=== PATIENT | male | born 1930 | race Caucasian/White ===

== ENCOUNTER 2016-09-26 10:38 | Inpatient (IN) | payer OTHER, MEDICARE ==
[~2016-09-26] VITALS: Ht 180.3 cm; Wt 84.8 kg
--- NOTE | ~2016-09-26 | H ---
[facility] [place] [address] HISTORY AND PHYSICAL Name: DAPHNE DONOVAN Room #: 515-P ADM IN M.R.#: [id number] Admission: 09/26/16 Attend Phys: Denver Kimball MD Discharge: Date of : 31 Report #: [id number] THIS REPORT FOR: //name// For History and Physical, please see office documentation/handwritten note in the patient's medical record. <ELECTRONICALLY SIGNED> By: Denver Kimball MD 10/14/16 0952 0750 Denver Kimball MD /
--- NOTE | ~2016-09-26 | HC ---
[facility] [place] [address] [address] CONSULTATION Name: DAPHNE DONOVAN Room #: 515-P ADM IN M.R.#: [id number] Admission: 09/26/16 Attend Phys: Denver Kimball MD Discharge: Date of : 31 Report #: [id number] THIS REPORT FOR: //name// CC: Denver Bonner DATE OF SERVICE: 10/04/2016 ATTENDING PHYSICIAN: Denver Kimball MD FOOD SAFETY DIRECTOR: José Miguel Krishna PhD CLINICAL PRESENTATION: The patient was admitted to the rehabilitation unit at [facility] for a comprehensive inpatient rehabilitation program to improve functional mobility and activities of daily living and self-care secondary to impairment from his acute left posterior frontal CVA. He was admitted with right hemiparesis and a functional decline in comparison to premorbid ability. His medical history includes normal pressure hydrocephalus, hypertension, elevated lipids, diabetes mellitus, coronary artery disease with prior coronary bypass grafting, atrial fibrillation and benign prostatic hypertrophy. The patient also has had some dysarthria and difficulty with functional mobility and ADLs. MEDICATIONS: Reported to include clopidogrel bisulfate 75 mg daily, insulin 20 units in a.m. b.i.d., multivitamin with iron supplement, terazosin, docosahexaenoic acid, aspirin, sotalol 80 mg daily, furosemide 20 mg daily, lisinopril 40 mg daily, insulin aspart sliding scale, GlucaGen 1 mg as directed, dextrose 50% with water 25 grams as directed, glucose liquid as directed, glucose as directed, tamsulosin hydrochloride, finasteride, magnesium hydroxide, sennosides, docusate NA, acetaminophen. A complete description of his medical condition, history and medications can be found in his medical records. Neuropsychological consultation was requested to provide assistance in the assessment of cognitive and emotional status and to provide recommendations and services. Prior to this most recent admission, the patient was living independently in his own home. The patient has 3 children. He is a collage graduate. 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 His family is very supportive. He does not report a prior history of treatment for mood disorder, or alcohol/drug abuse. TECHNIQUES UTILIZED: Clinical interview, review of medical records, staff consultation and behavioral observation, mini mental status exam 2 standard version, and verbal fluency assessment (letter and category) and brief abstract reasoning evaluation. [address] [address] CONSULTATION Name: DAPHNE DONOVAN Room #: 515-P [facility] IN ..#: [id number] Admission: 09/26/16 Attend Phys: Denver Kimball MD Discharge: Date of : 31 Report #: [id number] EXAMINATION FINDINGS: The patient was alert and cooperative with the assessment. There is no evidence of aphasia. He does not report auditory or visual hallucinations. He does not describe suicidal ideation. He does report subjective anxiety and depression. He was somewhat irritable and frustrated with the degree of care that he has been receiving. He does not report difficulty with memory, word finding, sleep or appetite. His performance was in the impaired range on the MMSE 2 brief version with a raw score 12 of 16 and a T score of 28. He was 3/3 for initial registration, 4/5 for orientation to time, 5/[address], and 0/3 for immediate recall of 3 items after a brief time delay and distraction. His performance improved on the MMSE 2 standard version to a raw score of 25 of 30, which is a T score of 40. He was 5/5 for serial sevens, 2/2 for naming, 1/1 for repetition, 3/3 for auditory comprehension and 1/1 for being able to read and follow a single command. He was able to dictate a sentence. He was not asked to copy a simple geometric design because of weakness in his dominant hand. Letter fluency was in the moderate range of impairment with a raw score of 15, T score of 29 and percentile rank of 2. Category fluency was in the mild to moderate range with a raw score of 10, T score at 30 and percentile rank of 2. The patient was 8/8 on a brief abstract reasoning test. DIAGNOSTIC IMPRESSION: Neurocognitive disorder, unspecified, without behavior disorder, extent to be determined, likely in the moderate range. 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 RECOMMENDATIONS: The patient and his family will benefit from educational information regard to the extent of his cognitive disorder and the use of compensatory strategies. Indicated is the use of relaxation techniques and opportunities to chart his progress in achieving goals and independence since his hospitalization to improve a sense of control and achievement. The patient will need increased assistance with instrumental ADLs upon his return home. An outpatient neuropsychological evaluation will be of benefit to assist in clarification of the extent of cognitive deficits. Thank you very much for allowing me to provide the consultation on this patient. <ELECTRONICALLY SIGNED> By: José Miguel Krishna, PhD 10/06/16 1822 1523 [id number] José Miguel Krishna, PhD /nt
--- NOTE | ~2016-09-26 | PLAN ---
[facility] [place] [address] REHAB UNIT PLAN OF CARE Name: DAPHNE DONOVAN Room #: 515-P [facility] IN M.R.#: [id number] Admission: 09/26/16 Attend Phys: Denver Kimball MD Discharge: Date of : 31 Report #: [id number] THIS REPORT FOR: //name// CC: Denver Bonner DATE OF SERVICE: 09/29/2016 DATE OF SERVICE: 09/29/2016 The patient is seen back today in followup. He is in no distress. Temperature 37.1, pulse 74, respirations 14, blood pressure 119/51. He is pleasant, alert. No focal calf swelling. No neurologic change noted with examination. His transfers are mod assist. He is ambulating 20 feet mod assist in the parallel bars. In occupational therapy, upper body dressing is max assist, lower body is max assist. In speech therapy, he has mild comprehensive deficits. He is on a regular diet with all liquids. ASSESSMENT: 1. Left posterior frontal cerebrovascular accident. 2. Right-sided hemiparesis. 3. Upper extremity greater than lower extremity. 4. Right-sided clumsiness. 5. Dysarthria. 6. Functional mobility and ADL and communication deficits. 7. History of diabetes mellitus. 8. Hypertension. 9. Elevated lipids. 10. History of normal pressure hydrocephalus. 11. Coronary artery disease with prior coronary artery bypass grafting. 12. Atrial fibrillation. 13. Benign prostatic hypertrophy. 14. Past tobacco usage. PLAN: The overall plan of care is based on the preadmission screen, post-admission physician evaluation and information garnered from therapy assessments. 1. Estimated length of stay is probably around 3 weeks, as he is at a lower level, functionally. 2. Medical prognosis is reasonably good. 3. Anticipated interventions includes the interdisciplinary acute inpatient rehabilitation program with PT and OT and speech working with him, rehab nursing assisting regarding medication management, skin care prophylaxis, bowel and bladder issues and nursing education. Case management is involved as well as the network relations consultant physicians. 4. Anticipated functional outcomes would be for the patient to become modified independent with transfers, mobility and ADLs and communication. Hopefully, he can become modified independent at the walker level. 5. Discharge destination is back to [place] [address] REHAB UNIT PLAN OF CARE Name: DAPHNE DONOVAN Room #: 515-P [facility]#: [id number] Admission: 09/26/16 Attend Phys: Denver Kimball MD Discharge: Date of : 31 Report #: [id number] with his . 6. Expected therapy by discipline includes PT, OT and speech 1 hour per day each 5 days a week throughout the duration of the acute inpatient rehabilitation stay. <ELECTRONICALLY SIGNED> By: Denver Kimball MD 10/14/16 0951 0916 Sadia Kimball MD /judy
[~2016-09-26 10:38] MED LIST: ASPIRIN EC325 M1 PO; ASPIRIN325 PO; ASPIRIN81 M2 PO; CIPRO500 MG PO; CIPROFLOXACIN500 M1 PO; COLACE100 MG PO; DIAZEPAM 5 MG5 M1 PO; FISH OIL 1,001000 M2 PO; FLAGYL500 MG PO; FLOMAX0.4 MG PO; HYTRIN 5 M5 MG/1 CAP PO; LANTUS100 UNIT/M SUBQ; LASIX 20 MG TAB20 MG PO; LISINOPRIL10 MG PO; MIRALAX255 GM PO; NORCO 5-325 TA1 EACH PO; NOVOLIN 70100 UNIT/5 SQ; PRAVACHOL40 M1 PO; PROSCAR 5MG TABL5 MG PO; SORINE 80 MG TA80 MG PO; UNICOMPLEX M TA1 TA1 PO; VERAPAMIL E.R240 M1 PO; VITAMIN D-32000 UNI1 PO; ZOCOR5 MG PO
[2016-09-26 15:20] VITALS: BP 140/68
[2016-09-27 05:09] LABS: HEMATOCRIT 35.1 % (42.0-52.0); HEMOGLOBIN 11.8 gm/dL (14.0-18.0); MCH 31.4 pg (26.0-34.0); MCHC 33.6 % (28.0-37.0); MCV 93.5 fL (80.0-100.0); RBC 3.75 mil/uL (4.50-6.00); RDW 13.6 % (10.5-14.5); WBC 5.4 thou/uL (4.0-11.0)
[2016-09-27 05:24] LABS: PROTIME 10.8 Seconds (9.3-11.4)
[2016-09-27 05:28] VITALS: BP 168/70
[2016-09-27 05:43] LABS: ALBUMIN 2.8 g/dL (3.4-5.0); CALCIUM 8.8 mg/dL (8.5-10.1); CREATININE 1.5 mg/dL (0.6-1.3); POTASSIUM 3.6 mmol/L (3.5-5.1); TOTAL BILIRUBIN 0.3 mg/dL (<0.1-1.0); TOTAL PROTEIN 6.1 g/dL (6.4-8.2)
[2016-09-28 04:16] LABS: INR 1.1
[2016-09-28 05:41] VITALS: BP 142/60
[2016-09-28 16:23] VITALS: BP 105/53
[2016-09-28 19:20] VITALS: BP 145/64
[2016-09-28 19:23] VITALS: BP 145/64
[2016-09-28 22:00] VITALS: BP 160/79
[2016-09-28 22:19] VITALS: BP 145/64
[2016-09-29 04:33] VITALS: BP 153/61
[2016-09-29 06:48] LABS: INR 1.1; PROTIME 11.2 Seconds (9.3-11.4)
[2016-09-29 08:59] VITALS: BP 119/51
[2016-09-29 16:00] VITALS: BP 141/52
[2016-09-30 04:08] VITALS: BP 142/73
[2016-09-30 05:46] LABS: PROTIME 10.8 Seconds (9.3-11.4)
[2016-09-30 16:00] VITALS: BP 126/58
[2016-10-01 03:35] LABS: PROTIME 10.8 Seconds (9.3-11.4)
[2016-10-01 05:58] VITALS: BP 156/61
[2016-10-01 16:00] VITALS: BP 132/66
[2016-10-02 04:03] LABS: PROTIME 10.6 Seconds (9.3-11.4)
[2016-10-02 05:14] VITALS: BP 155/68
[2016-10-02 14:50] VITALS: BP 114/56
[2016-10-03 03:26] VITALS: BP 122/53
[2016-10-03 15:27] VITALS: BP 132/65
[2016-10-04 05:09] VITALS: BP 142/67
[2016-10-04 16:35] VITALS: BP 136/55
[2016-10-05 05:25] VITALS: BP 158/56
[2016-10-05 08:13] VITALS: BP 159/87
[2016-10-05 15:45] VITALS: BP 146/66
[2016-10-06 04:15] VITALS: BP 143/58
[2016-10-06 08:00] VITALS: BP 123/91
[2016-10-06 16:00] VITALS: BP 117/51
[2016-10-07 06:04] VITALS: BP 113/60
[2016-10-07 16:00] VITALS: BP 159/77
[2016-10-08 03:35] VITALS: BP 143/59
[2016-10-08 16:00] VITALS: BP 153/73
[2016-10-09 04:58] VITALS: BP 172/72
[2016-10-09 16:00] VITALS: BP 110/55
[2016-10-10 04:11] VITALS: BP 179/83
[2016-10-10 08:13] VITALS: BP 138/66
[2016-10-10 15:34] VITALS: BP 105/72
[2016-10-11 06:58] VITALS: BP 177/88
[2016-10-11 16:22] VITALS: BP 134/50
[2016-10-12 04:04] VITALS: BP 160/65
[2016-10-12 09:00] VITALS: BP 125/62
[2016-10-12 16:00] VITALS: BP 125/62
[2016-10-13 03:34] VITALS: BP 161/78
[2016-10-13 08:00] VITALS: BP 117/49
[2016-10-14 03:57] VITALS: BP 173/74
[2016-10-14 08:00] VITALS: BP 104/57
[2016-10-14 13:39] VITALS: BP 114/65
[2016-10-15 02:56] VITALS: BP 115/56
[2016-10-15 04:56] VITALS: BP 153/79
[2016-10-15 10:34] VITALS: BP 114/65
[2016-10-15 10:51] VITALS: BP 114/65
[2016-10-15 17:29] VITALS: BP 114/65
[2016-11-05] MEDS ORDERED: TRAMADOL 50 MG50 MG PO (20:51)
[2016-11-05] MEDS ORDERED: LIORESAL 10 MG10 MG PO (20:53)
[2016-11-05] MEDS ORDERED: COLACE100 MG PO (20:55)
[2016-11-05] MEDS ORDERED: MELATONIN3 MG PO (20:55)
[2016-11-05] MEDS ORDERED: TRAZODONE HCL50 MG PO (20:57)
[2016-11-19] MEDS ORDERED: CARVEDILOL3.125 MG PO (13:10)
[2016-11-19] MEDS ORDERED: TORSEMIDE5 MG PO (13:11)
[2016-11-19] MEDS ORDERED: PACERONE 200 M200 M1 PO (13:11)
[2016-11-19] MEDS ORDERED: FLOMAX0.4 MG PO (13:12)
[2016-11-23] MEDS ORDERED: CEFDINIR300 MG PO (17:53)
== END 2016-10-15 14:59 | disposition home health service (06) | DRG 56 ==
PROVIDERS: Physical Medicine & Rehabilitation
DX: G81.91 Hemiplegia, unspecified affecting right dominant side (principal); I63.9 Cerebral infarction, unspecified; E43 Unspecified severe protein-calorie malnutrition; R47.1 Dysarthria and anarthria; E11.9 Type 2 diabetes mellitus without complications; I10 Essential (primary) hypertension; I25.10 Atherosclerotic heart disease of native coronary artery without angina pectoris; I48.91 Unspecified atrial fibrillation; N40.0 Benign prostatic hyperplasia without lower urinary tract symptoms; G31.84 Mild cognitive impairment of uncertain or unknown etiology; F43.23 Adjustment disorder with mixed anxiety and depressed mood; Z95.1 Presence of aortocoronary bypass graft; Z79.4 Long term (current) use of insulin; Z87.891 Personal history of nicotine dependence
CPT/HCPCS: 10112

== ENCOUNTER 2016-10-15 21:44 | Inpatient (IN) | payer OTHER, MEDICARE ==
[~2016-10-15] VITALS: Ht 152.4 cm; Wt 84.8 kg
--- NOTE | ~2016-10-15 | H ---
[facility] [place] [address] HISTORY AND PHYSICAL Name: DAPHNE DONOVAN Room #: 406-P [facility] IN ..#: [id number] Admission: 10/16/16 Attend Phys: José Miguel Bonner MD Discharge: 10/19/16 Date of : 31 Report #: [id number] THIS REPORT FOR: //name// CC: José Miguel Bonner DATE OF SERVICE: 10/16/2016 CHIEF COMPLAINT: Back pain. HISTORY OF PRESENT ILLNESS: The patient is an 86-year-old male who just left the rehab unit yesterday after his acute CVA. He went home, and when he was transferring to the bathroom, lost his balance and fell, landed into a chair. He is having pain from the fall. PAST MEDICAL HISTORY: Significant for: 1. Recent CVA just a couple of weeks ago. 2. Hypertension. 3. Hyperlipidemia. 4. Diabetes mellitus. 5. Normal pressure hydrocephalus with a shunt. 6. Prior prostate cancer. 7. Transurethral prostate resection. MEDICATIONS: Include Sotalol 80 mg a day, lisinopril 40 mg a day, Lasix 20 mg a day, Pravachol 10 mg a day, aspirin 325 mg a day, fish oil daily, Hytrin 10 mg a day, multivitamin daily, Proscar 5 mg at bedtime, Flomax 0.4 mg b.i.d. and Lantus 15 units b.i.d. ALLERGIES: No known drug allergies. SOCIAL HISTORY: He did smoke cigarettes in the past. Alcohol use is occasional, no recreational drugs. He is and lives with his . REVIEW OF SYSTEMS: CONSTITUTIONAL: No fever or chills. HEENT: No headaches or visual changes. CHEST: No chest pain, tightness in chest, shortness of breath, cough or sputum production. GASTROINTESTINAL: No nausea, vomiting, diarrhea or constipation. GENITOURINARY: No burning or frequency. BACK AND EXTREMITIES: He has the low back pain. NEUROLOGIC: He has the weakness from the stroke, which is actually improving. PHYSICAL EXAMINATION: VITAL SIGNS: Blood pressure 138/62, pulse is 67 and respiratory rate is 12. He is afebrile and O2 sats is 98%. [address] [address] HISTORY AND PHYSICAL Name: DAPHNE DONOVAN [place] Room #: 406-P [facility]#: [id number] Admission: 10/16/16 Attend Phys: José Miguel Bonner MD Discharge: 10/19/16 Date of : 31 Report #: [id number] GENERAL: The patient is alert, in no acute distress. HEENT: His mucous membranes are moist. NECK: Supple. No adenopathy, thyromegaly or bruits. LUNGS: Chest shows some decreased breath sounds in the bases. CARDIOVASCULAR: Regular, without murmur. BACK: Tender to palpation in the lumbar area. No step off. No bruising. EXTREMITIES: Normal pulses. DIAGNOSTIC DATA: His x-ray of his lumbar spine shows some degenerative changes, no fractures. X-ray of the chest showed some mild interstitial edema. No acute infiltrate. CT of the thoracic spine showed no fractures. ASSESSMENT AND PLAN: 1. Back pain, status post fall. We will go ahead and get an MRI of his lumbar spine tomorrow if it is not improved. For now, pain meds, start physical therapy. He will need to go to a skilled facility since he is not able to be managed at home. We will arrange for transfer for that in the next day or so. 2. Recent cerebrovascular accident. Start physical therapy and occupational therapy. 3. Hypertension. Resume medications. 4. Benign prostate hypertrophy. Resume medications. 5. Diabetes. Resume medications. <ELECTRONICALLY SIGNED> By: José Miguel Bonner MD 10/20/16 1632 1639 1807 José Miguel Bonner MD /nt
[2016-10-15 21:47] VITALS: BP 138/62
[2016-10-16 00:45] VITALS: BP 181/72
[2016-10-16 03:50] VITALS: BP 149/71
[2016-10-16 06:42] LABS: URINE BILIRUBIN NEGATIVE (Negative); URINE BLOOD 2+ (Negative); URINE COLOR YELLOW; URINE GLUCOSE-RANDOM* 1+ (Negative); URINE KETONES NEGATIVE (Negative); URINE LEUKOCYTES-REFLEX 2+ (Negative); URINE PROTEIN (DIPSTICK) TRACE (Negative); URINE SPECIFIC GRAVITY >= 1.030 (1.003-1.035); URINE UROBILINOGEN 0.2 E.U./dl (0.2-1.0)
[2016-10-16 07:16] LABS: CASTS None Seen /LPF (None Seen); CRYSTALS None Seen /LPF (None Seen); SQUAMOUS None Seen /LPF (0-3); URINE WBC-REFLEX >25 Many /HPF (0-5)
[2016-10-16 08:55] VITALS: BP 146/67
[2016-10-16 14:36] VITALS: BP 132/65
[2016-10-16 16:00] VITALS: BP 127/59
[2016-10-16 20:23] VITALS: BP 130/70
[2016-10-17 00:13] VITALS: BP 126/58
[2016-10-17 04:15] VITALS: BP 109/70
[2016-10-17 08:00] VITALS: BP 123/49
[2016-10-17 09:18] LABS: HEMOGLOBIN 11.5 gm/dL (14.0-18.0); MCH 31.7 pg (26.0-34.0); MCHC 33.9 % (28.0-37.0); MCV 93.4 fL (80.0-100.0); RBC 3.64 mil/uL (4.50-6.00); RDW 13.2 % (10.5-14.5); WBC 13.4 thou/uL (4.0-11.0)
[2016-10-17 09:31] LABS: ALBUMIN 2.6 g/dL (3.4-5.0); CALCIUM 9.2 mg/dL (8.5-10.1); CREATININE 1.5 mg/dL (0.6-1.3); TOTAL BILIRUBIN 0.4 mg/dL (<0.1-1.0); TOTAL PROTEIN 6.2 g/dL (6.4-8.2)
[2016-10-17 16:00] VITALS: BP 95/44
[2016-10-17 19:30] VITALS: BP 139/40
[2016-10-18 03:14] VITALS: BP 129/57
[2016-10-18 08:00] VITALS: BP 146/82
[2016-10-18 15:42] LABS: BASOPHILS 0.6 % (0.0-2.0); HEMATOCRIT 35.9 % (42.0-52.0); MCH 31.2 pg (26.0-34.0); MCHC 33.4 % (28.0-37.0); MCV 93.4 fL (80.0-100.0); MONOCYTES 7.8 % (1.0-8.0); PLATELET COUNT 192 thou/uL (150-400); POLYS 78.6 % (36.0-66.0); RBC 3.85 mil/uL (4.50-6.00); RDW 13.7 % (10.5-14.5); WBC 8.9 thou/uL (4.0-11.0)
[2016-10-18 15:49] LABS: MANUAL DIFF NO
[2016-10-18 16:13] LABS: CALCIUM 9.2 mg/dL (8.5-10.1); CREATININE 1.3 mg/dL (0.6-1.3); POTASSIUM 4.3 mmol/L (3.5-5.1)
[2016-10-18 16:29] VITALS: BP 142/75
[2016-10-18 20:20] VITALS: BP 133/70
[2016-10-19 04:06] VITALS: BP 148/75
[2016-10-19 05:45] LABS: HEMATOCRIT 33.1 % (42.0-52.0); HEMOGLOBIN 10.9 gm/dL (14.0-18.0); MCH 31.4 pg (26.0-34.0); MCV 95.2 fL (80.0-100.0); RBC 3.47 mil/uL (4.50-6.00); RDW 13.4 % (10.5-14.5); WBC 7.7 thou/uL (4.0-11.0)
[2016-10-19 05:56] LABS: CALCIUM 9.1 mg/dL (8.5-10.1); CREATININE 1.2 mg/dL (0.6-1.3); POTASSIUM 3.9 mmol/L (3.5-5.1)
[2016-10-19 08:00] VITALS: BP 157/70
[2016-10-19] MEDS ORDERED: HYDROCODON-ACE1 EAC7 PO (12:28)
[2016-10-19] MEDS ORDERED: CEFDINIR300 MG PO (12:29)
[2016-11-05] MEDS ORDERED: TRAMADOL 50 MG50 MG PO (20:51)
[2016-11-05] MEDS ORDERED: LIORESAL 10 MG10 MG PO (20:53)
[2016-11-05] MEDS ORDERED: MELATONIN3 MG PO (20:55)
[2016-11-05] MEDS ORDERED: COLACE100 MG PO (20:55)
[2016-11-05] MEDS ORDERED: TRAZODONE HCL50 MG PO (20:57)
[2016-11-19] MEDS ORDERED: CARVEDILOL3.125 MG PO (13:10)
[2016-11-19] MEDS ORDERED: TORSEMIDE5 MG PO (13:11)
[2016-11-19] MEDS ORDERED: PACERONE 200 M200 M1 PO (13:11)
[2016-11-19] MEDS ORDERED: FLOMAX0.4 MG PO (13:12)
[2016-11-23] MEDS ORDERED: CEFDINIR300 MG PO (17:53)
== END 2016-10-19 14:14 | DRG 177 ==
LOC: ER 21:44 → EROBS 10-16 00:03 → 4N 10-16 00:50
PROVIDERS: Family Medicine; Hospitalist
DX: J15.6 Pneumonia due to other Gram-negative bacteria (principal); J96.01 Acute respiratory failure with hypoxia; N39.0 Urinary tract infection, site not specified; G91.2 (Idiopathic) normal pressure hydrocephalus; M54.9 Dorsalgia, unspecified; I10 Essential (primary) hypertension; E11.9 Type 2 diabetes mellitus without complications; E78.5 Hyperlipidemia, unspecified; N40.0 Benign prostatic hyperplasia without lower urinary tract symptoms; Z79.4 Long term (current) use of insulin; Z79.899 Other long term (current) drug therapy; Z79.82 Long term (current) use of aspirin; Z95.1 Presence of aortocoronary bypass graft; Z85.46 Personal history of malignant neoplasm of prostate; Z86.73 Personal history of transient ischemic attack (TIA), and cerebral infarction without residual deficits; Z87.891 Personal history of nicotine dependence; Z87.81 Personal history of (healed) traumatic fracture; Z91.81 History of falling
CPT/HCPCS: 10091

== ENCOUNTER → 2017-05-14 | Outpatient (CLI) | payer OTHER, MEDICARE ==
[~2017-05-14] MED LIST changes: +CARVEDILOL3.125 MG PO; +CEFDINIR300 MG PO; +HYDROCODON-ACE1 EAC7 PO; +LIORESAL 10 MG10 MG PO; +MELATONIN3 MG PO; +PACERONE 200 M200 M1 PO; +TORSEMIDE5 MG PO; +TRAMADOL 50 MG50 MG PO; +TRAZODONE HCL50 MG PO
== END ==
LOC: HYPER 07:09
DX: I87.2 Venous insufficiency (chronic) (peripheral) (principal); E11.622 Type 2 diabetes mellitus with other skin ulcer; L97.821 Non-pressure chronic ulcer of other part of left lower leg limited to breakdown of skin; S81.802A Unspecified open wound, left lower leg, initial encounter; G20 Parkinson's disease; G81.91 Hemiplegia, unspecified affecting right dominant side; I48.91 Unspecified atrial fibrillation; I25.10 Atherosclerotic heart disease of native coronary artery without angina pectoris; E78.00 Pure hypercholesterolemia, unspecified; E78.5 Hyperlipidemia, unspecified; E11.22 Type 2 diabetes mellitus with diabetic chronic kidney disease; I13.0 Hypertensive heart and chronic kidney disease with heart failure and stage 1 through stage 4 chronic kidney disease, or unspecified chronic kidney disease; N18.9 Chronic kidney disease, unspecified; I50.9 Heart failure, unspecified; Z95.1 Presence of aortocoronary bypass graft; Z85.46 Personal history of malignant neoplasm of prostate; Z86.73 Personal history of transient ischemic attack (TIA), and cerebral infarction without residual deficits; Z87.891 Personal history of nicotine dependence; Z72.89 Other problems related to lifestyle; X58.XXXA Exposure to other specified factors, initial encounter; Y93.89 Activity, other specified; Y92.89 Other specified places as the place of occurrence of the external cause; Y99.8 Other external cause status

== ENCOUNTER → 2017-05-21 | Outpatient (CLI) | payer OTHER, MEDICARE | LOC: HYPER 07:12 | DX: I87.2 Venous insufficiency (chronic) (peripheral) (principal); L97.821 Non-pressure chronic ulcer of other part of left lower leg limited to breakdown of skin; S81.801D Unspecified open wound, right lower leg, subsequent encounter; G20 Parkinson's disease; G81.91 Hemiplegia, unspecified affecting right dominant side; I48.91 Unspecified atrial fibrillation; I25.10 Atherosclerotic heart disease of native coronary artery without angina pectoris; E11.22 Type 2 diabetes mellitus with diabetic chronic kidney disease; I13.0 Hypertensive heart and chronic kidney disease with heart failure and stage 1 through stage 4 chronic kidney disease, or unspecified chronic kidney disease; N18.9 Chronic kidney disease, unspecified; I50.9 Heart failure, unspecified; E78.00 Pure hypercholesterolemia, unspecified; E78.5 Hyperlipidemia, unspecified; Z86.73 Personal history of transient ischemic attack (TIA), and cerebral infarction without residual deficits; Z85.46 Personal history of malignant neoplasm of prostate; Z95.1 Presence of aortocoronary bypass graft; Z87.891 Personal history of nicotine dependence; Z72.89 Other problems related to lifestyle; Z79.4 Long term (current) use of insulin; X58.XXXD Exposure to other specified factors, subsequent encounter ==

== ENCOUNTER → 2017-06-02 | Outpatient (CLI) | payer OTHER, MEDICARE | LOC: HYPER 07:06 | DX: I87.2 Venous insufficiency (chronic) (peripheral) (principal); E11.622 Type 2 diabetes mellitus with other skin ulcer; L97.821 Non-pressure chronic ulcer of other part of left lower leg limited to breakdown of skin; L97.811 Non-pressure chronic ulcer of other part of right lower leg limited to breakdown of skin; G20 Parkinson's disease; G81.91 Hemiplegia, unspecified affecting right dominant side; I48.91 Unspecified atrial fibrillation; I25.10 Atherosclerotic heart disease of native coronary artery without angina pectoris; E78.00 Pure hypercholesterolemia, unspecified; E11.22 Type 2 diabetes mellitus with diabetic chronic kidney disease; I13.0 Hypertensive heart and chronic kidney disease with heart failure and stage 1 through stage 4 chronic kidney disease, or unspecified chronic kidney disease; N18.9 Chronic kidney disease, unspecified; I50.9 Heart failure, unspecified; Z95.1 Presence of aortocoronary bypass graft; Z86.73 Personal history of transient ischemic attack (TIA), and cerebral infarction without residual deficits; Z85.46 Personal history of malignant neoplasm of prostate; Z79.4 Long term (current) use of insulin; Z87.891 Personal history of nicotine dependence; Z72.89 Other problems related to lifestyle ==

== ENCOUNTER 2017-06-10 18:23 | Emergency (ER) | payer OTHER, MEDICARE ==
[~2017-06-10] VITALS: Ht 180.3 cm; Wt 82.1 kg
[2017-06-10 19:25] LABS: URINE BILIRUBIN NEGATIVE (Negative); URINE BLOOD 3+ (Negative); URINE COLOR YELLOW; URINE GLUCOSE-RANDOM* NEGATIVE (Negative); URINE KETONES NEGATIVE (Negative); URINE NITRITE NEGATIVE (Negative); URINE PROTEIN (DIPSTICK) 1+ (Negative); URINE SPECIFIC GRAVITY 1.015 (1.003-1.035); URINE UROBILINOGEN 0.2 E.U./dl (0.2-1.0)
[2017-06-10 19:34] LABS: HYALINE CASTS 0-3 Few /LPF (None Seen)
[2017-06-10 19:35] LABS: SQUAMOUS None Seen /LPF (0-3); URINE RBC >20 Many /HPF (0-2)
[2017-06-10 19:36] LABS: AMORPHOUS PHOSPHATES Moderate /LPF (None Seen); BACTERIA 1-9 Few /HPF (None Seen); URINE WBC 6-15 Few /HPF (0-5)
[2017-06-10] MEDS ORDERED: LEVAQUIN 250 M250 MG PO (19:57)
== END 2017-06-10 20:20 | disposition home or self-care (01) ==
LOC: ER 18:23
PROVIDERS: Nurse Practitioner
DX: N39.0 Urinary tract infection, site not specified (principal); T83.098A Other mechanical complication of other urinary catheter, initial encounter; I48.91 Unspecified atrial fibrillation; I10 Essential (primary) hypertension; I71.4 Abdominal aortic aneurysm, without rupture; E11.9 Type 2 diabetes mellitus without complications; Z95.5 Presence of coronary angioplasty implant and graft; Z85.46 Personal history of malignant neoplasm of prostate; Z87.891 Personal history of nicotine dependence; Z79.4 Long term (current) use of insulin; Y84.9 Medical procedure, unspecified as the cause of abnormal reaction of the patient, or of later complication, without mention of misadventure at the time of the procedure; Y92.89 Other specified places as the place of occurrence of the external cause

== ENCOUNTER 2017-06-13 19:54 | Emergency (ER) | payer OTHER, MEDICARE ==
[~2017-06-13] VITALS: Ht 180.3 cm; Wt 81.8 kg
[~2017-06-13 19:54] MED LIST changes: +LEVAQUIN 250 M250 MG PO
[2017-06-13 22:50] LABS: URINE BILIRUBIN NEGATIVE (Negative); URINE BLOOD 3+ (Negative); URINE COLOR YELLOW; URINE GLUCOSE-RANDOM* NEGATIVE (Negative); URINE KETONES NEGATIVE (Negative); URINE NITRITE NEGATIVE (Negative); URINE PROTEIN (DIPSTICK) 1+ (Negative); URINE UROBILINOGEN 0.2 E.U./dl (0.2-1.0)
[2017-06-13 23:09] LABS: URINE RBC 3-10 Few /HPF (0-2)
[2017-06-13 23:10] LABS: AMORPHOUS URATES Moderate /LPF (None Seen); CASTS None Seen /LPF (None Seen); SQUAMOUS 0-3 Few /LPF (0-3); WBC CLUMPS Occasional (None Seen)
[2017-06-13 23:11] LABS: BACTERIA 1-9 Few /HPF (None Seen)
== END 2017-06-13 22:26 | disposition home or self-care (01) ==
LOC: ER 19:54
PROVIDERS: Emergency Medicine
DX: T83.091A Other mechanical complication of indwelling urethral catheter, initial encounter (principal); R33.9 Retention of urine, unspecified; I10 Essential (primary) hypertension; E11.9 Type 2 diabetes mellitus without complications; I48.91 Unspecified atrial fibrillation; Z90.79 Acquired absence of other genital organ(s); Z95.1 Presence of aortocoronary bypass graft; Z85.46 Personal history of malignant neoplasm of prostate; Z98.890 Other specified postprocedural states; Z87.891 Personal history of nicotine dependence; Z79.4 Long term (current) use of insulin; Y84.8 Other medical procedures as the cause of abnormal reaction of the patient, or of later complication, without mention of misadventure at the time of the procedure; Y92.89 Other specified places as the place of occurrence of the external cause

== ENCOUNTER 2017-06-22 11:25 | Emergency (ER) | payer OTHER, MEDICARE ==
[~2017-06-22] VITALS: Ht 180.3 cm; Wt 70.3 kg
[2017-06-22 12:36] LABS: URINE BILIRUBIN NEGATIVE (Negative); URINE BLOOD 2+ (Negative); URINE COLOR YELLOW; URINE GLUCOSE-RANDOM* NEGATIVE (Negative); URINE KETONES NEGATIVE (Negative); URINE NITRITE NEGATIVE (Negative); URINE PROTEIN (DIPSTICK) NEGATIVE (Negative); URINE UROBILINOGEN 0.2 E.U./dl (0.2-1.0)
[2017-06-22] MEDS ORDERED: LEVAQUIN 500 M500 M2 PO (12:48)
[2017-06-22 12:52] LABS: BACTERIA 1-9 Few /HPF (None Seen); CASTS None Seen /LPF (None Seen); CRYSTALS None Seen /LPF (None Seen); SQUAMOUS 0-3 Few /LPF (0-3); URINE RBC 0-2 Rare /HPF (0-2); URINE WBC 6-15 Few /HPF (0-5)
== END 2017-06-22 13:06 | disposition home or self-care (01) ==
LOC: ER 11:25
PROVIDERS: Nurse Practitioner Family
DX: R33.9 Retention of urine, unspecified (principal); I48.91 Unspecified atrial fibrillation; I10 Essential (primary) hypertension; E11.9 Type 2 diabetes mellitus without complications; Z79.82 Long term (current) use of aspirin; Z79.4 Long term (current) use of insulin; Z95.1 Presence of aortocoronary bypass graft; Z87.891 Personal history of nicotine dependence

== ENCOUNTER → 2017-06-23 | Outpatient (CLI) | payer OTHER, MEDICARE ==
[~2017-06-23] MED LIST changes: +LEVAQUIN 500 M500 M2 PO
== END ==
LOC: HYPER 06:55
DX: I87.2 Venous insufficiency (chronic) (peripheral) (principal); E11.622 Type 2 diabetes mellitus with other skin ulcer; L97.821 Non-pressure chronic ulcer of other part of left lower leg limited to breakdown of skin; E11.22 Type 2 diabetes mellitus with diabetic chronic kidney disease; I13.0 Hypertensive heart and chronic kidney disease with heart failure and stage 1 through stage 4 chronic kidney disease, or unspecified chronic kidney disease; N18.9 Chronic kidney disease, unspecified; I50.9 Heart failure, unspecified; G20 Parkinson's disease; G81.91 Hemiplegia, unspecified affecting right dominant side; I48.91 Unspecified atrial fibrillation; I25.10 Atherosclerotic heart disease of native coronary artery without angina pectoris; E78.00 Pure hypercholesterolemia, unspecified; Z86.73 Personal history of transient ischemic attack (TIA), and cerebral infarction without residual deficits; Z85.46 Personal history of malignant neoplasm of prostate; Z79.4 Long term (current) use of insulin; Z95.1 Presence of aortocoronary bypass graft; Z87.891 Personal history of nicotine dependence; Z72.89 Other problems related to lifestyle

== ENCOUNTER 2017-06-26 11:55 | Emergency (ER) | payer OTHER, MEDICARE ==
[~2017-06-26] VITALS: Ht 180.3 cm; Wt 81.2 kg
[2017-06-26 13:00] LABS: URINE BILIRUBIN NEGATIVE (Negative); URINE BLOOD 2+ (Negative); URINE COLOR YELLOW; URINE GLUCOSE-RANDOM* NEGATIVE (Negative); URINE KETONES NEGATIVE (Negative); URINE NITRITE NEGATIVE (Negative); URINE PROTEIN (DIPSTICK) 1+ (Negative); URINE SPECIFIC GRAVITY 1.015 (1.003-1.035); URINE UROBILINOGEN 0.2 E.U./dl (0.2-1.0)
[2017-06-26] MEDS ORDERED: BACTRIM DS TAB1 EACH PO (13:15)
[2017-06-26 13:16] LABS: BACTERIA 1-9 Few /HPF (None Seen); CASTS None Seen /LPF (None Seen); CRYSTALS None Seen /LPF (None Seen); SQUAMOUS None Seen /LPF (0-3); URINE RBC 3-10 Few /HPF (0-2)
== END 2017-06-26 13:51 | disposition home or self-care (01) ==
LOC: ER 11:55
PROVIDERS: Physician Assistant
DX: T83.098A Other mechanical complication of other urinary catheter, initial encounter (principal); N39.0 Urinary tract infection, site not specified; I10 Essential (primary) hypertension; E11.9 Type 2 diabetes mellitus without complications; I48.91 Unspecified atrial fibrillation; Z95.1 Presence of aortocoronary bypass graft; Z98.890 Other specified postprocedural states; Z87.891 Personal history of nicotine dependence; Z79.4 Long term (current) use of insulin; Y84.8 Other medical procedures as the cause of abnormal reaction of the patient, or of later complication, without mention of misadventure at the time of the procedure; Y92.89 Other specified places as the place of occurrence of the external cause

== ENCOUNTER 2017-11-05 20:51 | Emergency (ER) | payer OTHER, MEDICARE ==
[~2017-11-05] VITALS: Ht 180.3 cm; Wt 82.6 kg
[~2017-11-05 20:51] MED LIST changes: +BACTRIM DS TAB1 EACH PO
[2017-11-05] MEDS ORDERED: IRON325 PO (21:08)
[2017-11-05] MEDS ORDERED: ANUSOL-HC25 MG RECTAL (22:02)
[2017-11-06 00:09] VITALS: BP 115/69
== END 2017-11-06 00:14 | disposition home or self-care (01) ==
LOC: ER 20:51
DX: K56.41 Fecal impaction (principal); K62.89 Other specified diseases of anus and rectum; I48.91 Unspecified atrial fibrillation; E11.9 Type 2 diabetes mellitus without complications; I10 Essential (primary) hypertension; Z85.46 Personal history of malignant neoplasm of prostate; Z95.1 Presence of aortocoronary bypass graft; Z87.891 Personal history of nicotine dependence

== ENCOUNTER 2018-09-20 22:29 | Emergency (ER) | payer OTHER, MEDICARE ==
[~2018-09-20] VITALS: Ht 180.3 cm; Wt 73.9 kg
[~2018-09-20 22:29] MED LIST changes: +ANUSOL-HC25 MG RECTAL; +IRON325 PO
[2018-09-21] MEDS ORDERED: COZAAR 25 MG TA25 M1 PO (00:09)
[2018-09-21] MEDS ORDERED: HYOPHEN TABLET1 EACH PO (00:12)
[2018-09-21 00:27] LABS: URINE BILIRUBIN NEGATIVE (Negative); URINE BLOOD 3+ (Negative); URINE CLARITY CLEAR; URINE COLOR YELLOW; URINE GLUCOSE-RANDOM* NEGATIVE (Negative); URINE KETONES NEGATIVE (Negative); URINE NITRITE-REFLEX NEGATIVE (Negative); URINE PROTEIN (DIPSTICK) 2+ (Negative); URINE UROBILINOGEN 0.2 E.U./dl (0.2-1.0)
[2018-09-21 00:30] LABS: URINE LEUKOCYTES-REFLEX 2+ (Negative)
[2018-09-21] MEDS ORDERED: KEFLEX500 M1 PO (00:31)
[2018-09-21] MEDS ORDERED: CORTIZONE-1028 GM TOP (00:33)
[2018-09-21 00:34] LABS: BACTERIA-REFLEX 1-9 Few /HPF (None Seen); CASTS None Seen /LPF (None Seen); MUCUS 0-3 Light strn/LPF (None Seen); SQUAMOUS 0-3 Few /LPF (0-3); URINE RBC >20 Many /HPF (0-2); URINE WBC-REFLEX 6-15 Few /HPF (0-5)
[2018-09-21 00:35] LABS: TRIPLE PHOSPHATE CRYSTALS 4-10 Moderate /LPF (None Seen)
[2018-09-21 01:05] VITALS: BP 118/51
== END 2018-09-21 00:45 | disposition home or self-care (01) ==
LOC: ER 22:29
PROVIDERS: Physician Assistant
DX: N39.0 Urinary tract infection, site not specified (principal); N48.1 Balanitis; Z46.6 Encounter for fitting and adjustment of urinary device; I48.91 Unspecified atrial fibrillation; E11.9 Type 2 diabetes mellitus without complications; I10 Essential (primary) hypertension; Z87.891 Personal history of nicotine dependence; Z85.46 Personal history of malignant neoplasm of prostate; Z79.4 Long term (current) use of insulin

== ENCOUNTER 2018-09-21 13:20 | Emergency (ER) | payer OTHER, MEDICARE ==
[~2018-09-21 13:20] MED LIST changes: +CORTIZONE-1028 GM TOP; +COZAAR 25 MG TA25 M1 PO; +HYOPHEN TABLET1 EACH PO; +KEFLEX500 M1 PO
== END 2018-09-21 18:17 | disposition home or self-care (01) ==
LOC: ER 13:20
DX: T83.098A Other mechanical complication of other urinary catheter, initial encounter (principal); I48.91 Unspecified atrial fibrillation; I10 Essential (primary) hypertension; Z87.891 Personal history of nicotine dependence; Z79.4 Long term (current) use of insulin; Z95.1 Presence of aortocoronary bypass graft; Z85.46 Personal history of malignant neoplasm of prostate; Y84.8 Other medical procedures as the cause of abnormal reaction of the patient, or of later complication, without mention of misadventure at the time of the procedure; Y92.89 Other specified places as the place of occurrence of the external cause

== ENCOUNTER 2018-09-24 23:05 | Emergency (ER) | payer OTHER, MEDICARE ==
[~2018-09-24] VITALS: Ht 180.3 cm; Wt 75.8 kg
[2018-09-25 00:05] LABS: HEMATOCRIT 31.1 % (42.0-52.0); HEMOGLOBIN 10.4 gm/dL (14.0-18.0); MCH 31.1 pg (26.0-34.0); MCHC 33.5 g/dL (28.0-37.0); MCV 92.8 fL (80.0-100.0); RBC 3.35 mil/uL (4.50-6.00); RDW 15.4 % (10.5-14.5); WBC 7.7 thou/uL (4.0-11.0)
[2018-09-25 00:12] LABS: CALCIUM 8.9 mg/dL (8.5-10.1); POTASSIUM 4.1 mmol/L (3.5-5.1)
[2018-09-25 00:45] VITALS: BP 122/47
== END 2018-09-25 00:46 | disposition home or self-care (01) ==
LOC: ER 23:05
PROVIDERS: Emergency Medicine
DX: R32 Unspecified urinary incontinence (principal); I48.91 Unspecified atrial fibrillation; E11.9 Type 2 diabetes mellitus without complications; I10 Essential (primary) hypertension; Z87.891 Personal history of nicotine dependence; Z85.46 Personal history of malignant neoplasm of prostate; Z79.4 Long term (current) use of insulin

== ENCOUNTER 2018-09-26 18:19 | Emergency (ER) | payer OTHER, MEDICARE ==
[~2018-09-26] VITALS: Ht 180.3 cm; Wt 75.8 kg
[2018-09-26 20:07] VITALS: BP 121/46
== END 2018-09-26 20:08 | disposition home or self-care (01) ==
LOC: ER 18:19
DX: R32 Unspecified urinary incontinence (principal); I48.91 Unspecified atrial fibrillation; E11.9 Type 2 diabetes mellitus without complications; I10 Essential (primary) hypertension; Z79.4 Long term (current) use of insulin; Z87.891 Personal history of nicotine dependence; Z85.46 Personal history of malignant neoplasm of prostate

== ENCOUNTER → 2018-10-07 | Outpatient (CLI) | payer OTHER, MEDICARE | LOC: ULTRA 13:08 | DX: G45.9 Transient cerebral ischemic attack, unspecified (principal); H34.9 Unspecified retinal vascular occlusion ==

== ENCOUNTER 2019-05-22 10:39 | Emergency (ER) | payer OTHER, MEDICARE ==
[~2019-05-22] VITALS: Ht 177.8 cm; Wt 77.1 kg
[2019-05-22 11:19] LABS: URINE BILIRUBIN NEGATIVE (Negative); URINE BLOOD 3+ (Negative); URINE GLUCOSE-RANDOM* NEGATIVE (Negative); URINE KETONES NEGATIVE (Negative); URINE LEUKOCYTES-REFLEX 3+ (Negative); URINE NITRITE-REFLEX NEGATIVE (Negative); URINE PROTEIN (DIPSTICK) 3+ (Negative); URINE UROBILINOGEN 0.2 E.U./dl (0.2-1.0)
[2019-05-22 11:20] LABS: URINE CLARITY CLOUDY; URINE COLOR BROWN
[2019-05-22 11:27] LABS: CASTS None Seen /LPF (None Seen); CRYSTALS None Seen /LPF (None Seen); SQUAMOUS None Seen /LPF (0-3); URINE RBC >20 Many /HPF (0-2); URINE WBC-REFLEX >25 Many /HPF (0-5)
[2019-05-22 11:28] LABS: BACTERIA-REFLEX >30 Many /HPF (None Seen)
[2019-05-22 12:13] LABS: RBC 3.18 mil/uL (4.50-6.00)
[2019-05-22 12:15] LABS: ABSOLUTE NEUTROPHILS 8.7 thou/uL (1.4-8.2); BASOPHILS 0.5 % (0.0-2.0); EOSINOPHILS 0.6 % (0.0-3.0); HEMATOCRIT 30.9 % (42.0-52.0); HEMOGLOBIN 10.3 gm/dL (14.0-18.0); LYMPHOCYTES 10.5 % (24.0-44.0); MCH 32.3 pg (26.0-34.0); MCHC 33.4 g/dL (28.0-37.0); MCV 96.9 fL (80.0-100.0); MONOCYTES 11.2 % (1.0-8.0); PLATELET COUNT 165 thou/uL (150-400); POLYS 77.2 % (36.0-66.0); RDW 14.2 % (10.5-14.5); WBC 11.3 thou/uL (4.0-11.0)
[2019-05-22 12:20] LABS: CALCIUM 8.5 mg/dL (8.5-10.1); POTASSIUM 3.8 mmol/L (3.5-5.1)
[2019-05-22 12:26] LABS: ALBUMIN 2.6 g/dL (3.4-5.0); DIRECT BILIRUBIN 0.2 mg/dL (<0.1-0.3); TOTAL BILIRUBIN 0.5 mg/dL (<0.1-1.0); TOTAL PROTEIN 6.2 g/dL (6.4-8.2)
[2019-05-22 13:33] VITALS: BP 122/48
[2019-05-22] MEDS ORDERED: BACTRIM DS TAB1 EACH PO (13:53)
== END 2019-05-22 14:32 | disposition home or self-care (01) ==
LOC: ER 10:39
PROVIDERS: Emergency Medicine
DX: N12 Tubulo-interstitial nephritis, not specified as acute or chronic (principal); K59.00 Constipation, unspecified; I48.91 Unspecified atrial fibrillation; I10 Essential (primary) hypertension; E11.9 Type 2 diabetes mellitus without complications; Z85.46 Personal history of malignant neoplasm of prostate; Z98.2 Presence of cerebrospinal fluid drainage device; Z79.4 Long term (current) use of insulin; Z87.891 Personal history of nicotine dependence; Z88.1 Allergy status to other antibiotic agents

== ENCOUNTER → 2019-11-22 | Outpatient (CLI) | payer OTHER, MEDICARE | LOC: SJCVC 11:04 | DX: I21.19 ST elevation (STEMI) myocardial infarction involving other coronary artery of inferior wall (principal); R94.31 Abnormal electrocardiogram [ECG] [EKG]; I13.10 Hypertensive heart and chronic kidney disease without heart failure, with stage 1 through stage 4 chronic kidney disease, or unspecified chronic kidney disease; E11.22 Type 2 diabetes mellitus with diabetic chronic kidney disease; N18.3 Chronic kidney disease, stage 3 (moderate); I25.5 Ischemic cardiomyopathy; I25.10 Atherosclerotic heart disease of native coronary artery without angina pectoris; I48.91 Unspecified atrial fibrillation; R26.9 Unspecified abnormalities of gait and mobility; E78.00 Pure hypercholesterolemia, unspecified; E78.5 Hyperlipidemia, unspecified; Z79.4 Long term (current) use of insulin; Z86.73 Personal history of transient ischemic attack (TIA), and cerebral infarction without residual deficits; Z95.1 Presence of aortocoronary bypass graft; Z87.891 Personal history of nicotine dependence; Z72.89 Other problems related to lifestyle; Z79.82 Long term (current) use of aspirin; Z79.899 Other long term (current) drug therapy; Z88.1 Allergy status to other antibiotic agents ==

== ENCOUNTER → 2020-05-22 | Outpatient (CLI) | payer OTHER, MEDICARE | LOC: SJCVCIMAG 07:52 → SJCVC 15:02 | PROVIDERS: ATTEND Internal Medicine Cardiovascular Disease | DX: I25.10 Atherosclerotic heart disease of native coronary artery without angina pectoris (principal); R94.31 Abnormal electrocardiogram [ECG] [EKG]; R00.1 Bradycardia, unspecified; I44.0 Atrioventricular block, first degree; I11.9 Hypertensive heart disease without heart failure; I25.5 Ischemic cardiomyopathy; Z95.1 Presence of aortocoronary bypass graft; Z79.899 Other long term (current) drug therapy; Z87.891 Personal history of nicotine dependence ==

== ENCOUNTER → 2020-06-13 | Outpatient (CLI) | payer OTHER, MEDICARE ==
[~2020-06-13] MED LIST changes: +ASA81BEC PO; +CLOPIDOGREL75 MG PO; +TORSEMIDE10 MG PO
[2020-06-13 10:59] LABS: CREATININE 1.9 mg/dL (0.7-1.3)
--- NOTE | 2020-06-13 11:50 | NUR ---
11:20 PT BROUGHT TO CV HOLDING FOR HYDRATION AN 200CC BOLUS NS. IV STRTED L AC. FLUIDS STARTED 200ML BOLUS THEN 100ML/HR.
== END ==
LOC: LABMALL 10:19 → CAT 10:19
PROVIDERS: ATTEND Internal Medicine Cardiovascular Disease
DX: I71.4 Abdominal aortic aneurysm, without rupture (principal); J84.10 Pulmonary fibrosis, unspecified; I25.10 Atherosclerotic heart disease of native coronary artery without angina pectoris; M16.0 Bilateral primary osteoarthritis of hip; N26.1 Atrophy of kidney (terminal); N42.9 Disorder of prostate, unspecified

== ENCOUNTER → 2020-06-14 | Outpatient (CLI) | payer OTHER, MEDICARE | LOC: SJCVC 16:01 | PROVIDERS: ATTEND Nuclear Medicine Nuclear Cardiology | DX: I70.1 Atherosclerosis of renal artery (principal); I73.9 Peripheral vascular disease, unspecified; I25.10 Atherosclerotic heart disease of native coronary artery without angina pectoris; I71.4 Abdominal aortic aneurysm, without rupture; I48.91 Unspecified atrial fibrillation; E11.21 Type 2 diabetes mellitus with diabetic nephropathy; I12.9 Hypertensive chronic kidney disease with stage 1 through stage 4 chronic kidney disease, or unspecified chronic kidney disease; E11.22 Type 2 diabetes mellitus with diabetic chronic kidney disease; C61 Malignant neoplasm of prostate; E78.00 Pure hypercholesterolemia, unspecified; N28.9 Disorder of kidney and ureter, unspecified; Z79.4 Long term (current) use of insulin; Z87.891 Personal history of nicotine dependence ==

== ENCOUNTER 2020-06-20 07:00 | Outpatient (CLI) | payer OTHER, MEDICARE ==
[~2020-06-20] VITALS: Ht 180.3 cm; Wt 82.6 kg
[~2020-06-20 07:00] MED LIST changes: -ASA81BEC PO; -CLOPIDOGREL75 MG PO; -TORSEMIDE10 MG PO
[2020-06-20 07:47] LABS: HEMATOCRIT 32.1 % (42.0-52.0); MCH 34.1 pg (26.0-34.0); MCHC 34.3 g/dL (28.0-37.0); MCV 99.6 fL (80.0-100.0); RBC 3.23 mil/uL (4.50-6.00); WBC 7.7 thou/uL (4.0-11.0)
[2020-06-20 07:48] VITALS: BP 150/62
[2020-06-20] MEDS ORDERED: ASA81BEC PO (08:01)
[2020-06-20] MEDS ORDERED: TORSEMIDE10 MG PO (08:06)
[2020-06-20 08:08] LABS: CALCIUM 9.1 mg/dL (8.5-10.1); CREATININE 2.2 mg/dL (0.7-1.3); POTASSIUM 4.5 mmol/L (3.5-5.1)
[2020-06-20 17:46] VITALS: BP 171/82
[2020-06-20 19:55] VITALS: BP 156/68
--- NOTE | 2020-06-20 20:10 | NUR ---
NEW ADMIT FOR RENAL STENT PLACEMENT. ALERT X3 WITH FORGETFULL, DENIES CHEST PAIN, SOB MANAGED WITH 1L NASAL CANNULA AND UP TO BEDSIDE CHAIR. AFIB ON TELE. INCONTINENT OF BLADDER CURRENTLY IN PULL UP PER PT'S REQUEST. AX1 WITH WALKER. RIGHT GRION SIGHT C/D/I. CALL LIGHT IN REACH. FALL PRECAUTION IN PLACE.
[2020-06-20 23:11] VITALS: BP 162/65
--- NOTE | 2020-06-21 03:27 | NUR ---
Assumed pt care at 1900. Pt is alert and oriented. No sign of distress noted in pt. Denies any pain. Pt is sitting in chair and states that he wanted to sleep on the chair. Pt is stable. Groin site is clean, dry and intact. Fall precaution in place. Assessment completed and documented. Scheduled meds administered to pt. Tolerated PO intake. Pt requested for sleep medication. Melatonin ordered per physician. Continue to monitor pt. No acute event overnight. Continue to monitor. No needs requested at this time.
[2020-06-21 03:38] VITALS: BP 134/66
[2020-06-21 05:55] LABS: HEMATOCRIT 29.5 % (42.0-52.0); HEMOGLOBIN 9.9 gm/dL (14.0-18.0); MCH 33.5 pg (26.0-34.0); MCHC 33.6 g/dL (28.0-37.0); MCV 99.7 fL (80.0-100.0); RBC 2.96 mil/uL (4.50-6.00); RDW 14.6 % (10.5-14.5); WBC 7.5 thou/uL (4.0-11.0)
[2020-06-21 06:18] LABS: CALCIUM 8.6 mg/dL (8.5-10.1); CREATININE 1.8 mg/dL (0.7-1.3); POTASSIUM 4.5 mmol/L (3.5-5.1)
[2020-06-21] MEDS ORDERED: CLOPIDOGREL75 MG PO (07:15)
[2020-06-21 08:00] VITALS: BP 111/48
[2020-06-21 09:51] VITALS: BP 111/48
--- NOTE | 2020-06-21 11:00 | NUR ---
PT CARE ASSUMED APPROX 0700. ASSESSMENT CHARTED. PT DENIES PAIN AND SOA. VSS. PT DISCHARGING. DISCHARGE EDUCATION DONE WITH SPOUSE AND PT BY AND TYSHAWN. EDUCATION REINFORCED BY THIS NURS WITH SPOUSE AND PT. BOTH DENIED QUESTIONS OR CONCERNS REGARDING POST HOSPITAL CARES. IV OUT, TELE OFF. ALL BELONGINGS IN PT POSSESSION. IV OUT, TELE OFF. PT ESCORTED OUT VIA WHEELCHAIR BY VAN LOADER.
== END 2020-06-21 11:13 | disposition home or self-care (01) ==
LOC: CATH 07:00 → 2N 17:25 → CATH 06-21 11:13
PROVIDERS: ATTEND Nuclear Medicine Nuclear Cardiology
DX: I70.1 Atherosclerosis of renal artery (principal); I15.0 Renovascular hypertension; I70.8 Atherosclerosis of other arteries; I10 Essential (primary) hypertension; I25.2 Old myocardial infarction; I42.9 Cardiomyopathy, unspecified; E11.9 Type 2 diabetes mellitus without complications; E78.5 Hyperlipidemia, unspecified; I48.91 Unspecified atrial fibrillation; Z98.890 Other specified postprocedural states; Z79.899 Other long term (current) drug therapy; Z79.4 Long term (current) use of insulin; Z85.46 Personal history of malignant neoplasm of prostate; Z86.73 Personal history of transient ischemic attack (TIA), and cerebral infarction without residual deficits; Z95.1 Presence of aortocoronary bypass graft; Z87.891 Personal history of nicotine dependence; Z79.01 Long term (current) use of anticoagulants
CPT/HCPCS: 10081

== ENCOUNTER → 2020-10-25 | Outpatient (CLI) | payer OTHER, MEDICARE ==
[~2020-10-25] MED LIST changes: +ASA81BEC PO; +CLOPIDOGREL75 MG PO; +TORSEMIDE10 MG PO
== END ==
LOC: SJCVCIMAG 09:01
PROVIDERS: ATTEND Nuclear Medicine Nuclear Cardiology
DX: I65.23 Occlusion and stenosis of bilateral carotid arteries (principal); E11.22 Type 2 diabetes mellitus with diabetic chronic kidney disease; I12.9 Hypertensive chronic kidney disease with stage 1 through stage 4 chronic kidney disease, or unspecified chronic kidney disease; N18.30 Chronic kidney disease, stage 3 unspecified; I77.811 Abdominal aortic ectasia; I73.9 Peripheral vascular disease, unspecified; E78.00 Pure hypercholesterolemia, unspecified; E11.21 Type 2 diabetes mellitus with diabetic nephropathy; I48.91 Unspecified atrial fibrillation; I25.10 Atherosclerotic heart disease of native coronary artery without angina pectoris; Z95.1 Presence of aortocoronary bypass graft; Z79.4 Long term (current) use of insulin; Z79.899 Other long term (current) drug therapy; Z87.891 Personal history of nicotine dependence

== ENCOUNTER → 2020-12-03 | Outpatient (CLI) | payer OTHER, MEDICARE | LOC: SJCVCIMAG 10:01 | PROVIDERS: ATTEND Internal Medicine Cardiovascular Disease | DX: R94.31 Abnormal electrocardiogram [ECG] [EKG] (principal); I08.3 Combined rheumatic disorders of mitral, aortic and tricuspid valves; E11.22 Type 2 diabetes mellitus with diabetic chronic kidney disease; I13.10 Hypertensive heart and chronic kidney disease without heart failure, with stage 1 through stage 4 chronic kidney disease, or unspecified chronic kidney disease; N18.30 Chronic kidney disease, stage 3 unspecified; I25.5 Ischemic cardiomyopathy; I25.10 Atherosclerotic heart disease of native coronary artery without angina pectoris; I48.0 Paroxysmal atrial fibrillation; R26.9 Unspecified abnormalities of gait and mobility; E78.00 Pure hypercholesterolemia, unspecified; I70.1 Atherosclerosis of renal artery; I48.91 Unspecified atrial fibrillation; E11.51 Type 2 diabetes mellitus with diabetic peripheral angiopathy without gangrene; Z79.899 Other long term (current) drug therapy; Z85.46 Personal history of malignant neoplasm of prostate; Z92.3 Personal history of irradiation; Z86.73 Personal history of transient ischemic attack (TIA), and cerebral infarction without residual deficits; Z79.4 Long term (current) use of insulin; Z87.891 Personal history of nicotine dependence; Z72.89 Other problems related to lifestyle; Z95.1 Presence of aortocoronary bypass graft; Z88.5 Allergy status to narcotic agent ==

== ENCOUNTER 2020-12-05 19:56 | Inpatient (IN) | payer OTHER, MEDICARE ==
[~2020-12-05] VITALS: Ht 177.8 cm; Wt 82.5 kg
--- NOTE | ~2020-12-05 | EMS ---
[address] [address] EMS Patient Care Report Name: DAPHNE DONOVAN Room #: 170-8 ADM IN M.R.#: [id number] Admission: 12/05/20 Attend Phys: Andrea Augustine MD Discharge: Date of : 31 Report #: [id number] THIS REPORT FOR: //name// Report Transmitted: 12/05/2020 21:36 EMS Care Summary [facility] MED-ACT Incident [id number] @ 12/05/2020 19:18 Incident Location [address] [place] [address] Patient DAPHNE DONOVAN Male, 89 Years 1930 Patient Address [address] [place] [address] Patient History Cancer, Unspecified,Hypertension (HTN),ST Elevation (STEMI) Myocardial Infarction,Stroke/CVA,Coronary Artery Bypass Graft (CABG),Type 2 Diabetes, Patient Allergies Keflex, Patient Medications Pravachol, Sulfamethoxazole, Ferrous Sulfate, Finasteride, Amiodarone, Losartan, Docusate Sodium, Insulin, ASA, Torsemide, Plavix, Chief Complaint fall Disposition Transported No Lights/[place] Dis[place] Reason Falls Transported To Narrative [id number] called to a fall; arrive to find an AOX4 89 y/o M seated at the top of the stairs. PT is being transported to the ED for evaluation of R hip and knee [address] [address] EMS Patient Care Report Name: NOELKYLAH GalvanDAPHNE D Room #: 170-8 ADM IN M.R.#: [id number] Admission: 12/05/20 Attend Phys: Andrea Augustine MD Discharge: Date of : 31 Report #: [id number] pain second to a trip and fall. PT states he was walking when he tripped and fell from standing. Family states the PT has had multiple falls over the past 6 months. states she heard a thud and found the PT on the floor. PT attributes loosing his footing to his shoes. PT reports baseline R side weakness from a past CVA. PT denies loss of consciousness, head, neck, and back pain. R leg does not have any visible rotation nor shortening. PT denies tenderness on palpation. PMS intact x 4, FAJARDO. PT states pain is dull and constant. PT denies all other associated injuries. PT is lift assisted from ground to stair chair. PT is then moved to cot outside front door. PT is lift assisted to and is secured on cot in position of comfort and is loaded in ambulance. PT denies multiple offers for pain therapy. En route. PT remains AOX4 and stable, with PMS intact x 4 and clinical condition and behavior unchanged. PT is transferred ED RN in AOX4 and stable condition. PT is lift assisted from cot to ED bed via crew and ED staff, in ED room. Initial Vitals @19:40P: 55,BP: 173/72,SpO2: 100, @19:37P: 61,SpO2: 97, @19:26P: 60,R: 12,BP: 168/85,Pain: 2/10,GCS: 15,Temp: 98.7F,SpO2: 96,Revised Trauma: 12, @19:48P: 60,R: 12,BP: 138/54,Pain: 2/10,SpO2: 97, Assessments @19:40MENTAL:Time Oriented,Person Oriented,Event Oriented,Place Oriented,SKIN:HEENT:Eyes: Left Pupil: 4-mm,Eyes: Right Pupil: 4-mm,Head/Face: No Abnormalities,Neck/Airway: No Abnormalities,LUNG SOUNDS:General: No Abnormalities,ABDOMEN:General: No Abnormalities,PELVIS//GI:Pelvis Other,EXTREMITIES:Right Leg: Other,Right Leg: LIGIA,Right Leg: LIGIA,Left Arm: No Abnormalities,Right Arm: No Abnormalities,Left Leg: No Abnormalities,PULSE:NEURO:No Abnormalities, Impression Injury of Hip Procedures @19:27Surgical Mask on PatientResponse: Unchanged@19:27ALS AssessmentResponse: UnchangedSucceeded Timeline 19:16,Call Received 19:16,Psap Call [address] [address] EMS Patient Care Report Name: DAPHNE DONOVAN Room #: 170-8 ADM IN M.R.#: [id number] Admission: 12/05/20 Attend Phys: Andrea Augustine MD Discharge: Date of : 31 Report #: [id number] 19:18,Dispatched 19:19,En Route 19:25,On Scene 19:26,At Patient 19:26,BP: 168/85 M,PULSE: 60,RR: 12 R,SPO2: 96 Ox,ETCO2: ,BG: ,PAIN: 2,GCS: 15, 19:27,Surgical Mask on Patient,Response: Unchanged 19:27,ALS Assessment,Response: UnchangedSucceeded, 19:37,BP: / M,PULSE: 61,RR: R,SPO2: 97 Ox,ETCO2: ,BG: ,PAIN: ,GCS: , 19:40,BP: 173/72 M,PULSE: 55,RR: R,SPO2: 100 Ox,ETCO2: ,BG: ,PAIN: ,GCS: , 19:41,Depart Scene 19:48,BP: 138/54 M,PULSE: 60,RR: 12 R,SPO2: 97 Ox,ETCO2: ,BG: ,PAIN: 2,GCS: , 19:57,At Destination 20:03,Call Closed Disclaimer v1.1 Copyright 2020 [employer] This EMS Care Summary contains data elements from the applicable legal record (which may be displayed differently). It is designed to provide pertinent information for the following purposes: continuity of care, clinical quality, and state data reporting. The complete legal record is available to ED staff and administrators of the receiving hospital in [employer] Patient Tracker. All data is provided "as is."
[2020-12-05 19:57] VITALS: BP 156/45
[2020-12-05 20:49] LABS: ABSOLUTE NEUTROPHILS 4.2 thou/uL (1.4-8.2); BASOPHILS 0.6 % (0.0-2.0); HEMATOCRIT 35.5 % (42.0-52.0); HEMOGLOBIN 11.7 gm/dL (14.0-18.0); LYMPHOCYTES 24.5 % (24.0-44.0); MCH 33.1 pg (26.0-34.0); MCV 100.4 fL (80.0-100.0); MONOCYTES 7.1 % (1.0-8.0); PLATELET COUNT 187 thou/uL (150-400); POLYS 63.8 % (36.0-66.0); RBC 3.53 mil/uL (4.50-6.00); RDW 14.6 % (10.5-14.5); WBC 6.6 thou/uL (4.0-11.0)
[2020-12-05 20:54] LABS: POTASSIUM 3.9 mmol/L (3.5-5.1)
[2020-12-05 21:00] LABS: ALBUMIN 3.4 g/dL (3.4-5.0); APTT 23.1 Seconds (24.5-32.8); PROTIME 11.4 Seconds (9.3-11.4); TOTAL BILIRUBIN 0.4 mg/dL (0.2-1.0); TOTAL PROTEIN 6.9 g/dL (6.4-8.2)
[2020-12-05 22:29] VITALS: BP 157/64
[2020-12-05 23:18] LABS: URINE BILIRUBIN NEGATIVE (Negative); URINE BLOOD 1+ (Negative); URINE CLARITY CLEAR; URINE COLOR YELLOW; URINE GLUCOSE-RANDOM* NEGATIVE (Negative); URINE KETONES NEGATIVE (Negative); URINE LEUKOCYTES-REFLEX TRACE (Negative); URINE NITRITE-REFLEX NEGATIVE (Negative); URINE PROTEIN (DIPSTICK) NEGATIVE (Negative); URINE SPECIFIC GRAVITY 1.015 (1.005-1.035); URINE UROBILINOGEN 0.2 E.U./dl (0.2-1.0)
[2020-12-05 23:54] LABS: BACTERIA-REFLEX 1-9 Few /HPF (None Seen); CRYSTALS None Seen /LPF (None Seen); HYALINE CASTS 0-3 Few /LPF (None Seen); MUCUS 0-3 Light strn/LPF (None Seen); SQUAMOUS 0-3 Few /LPF (0-3); URINE RBC 3-10 Few /HPF (0-2); URINE WBC-REFLEX 0-5 Rare /HPF (0-5)
[2020-12-06] VITALS (9 sets, daily range): BP systolic 95–151; BP diastolic 50–75
--- NOTE | 2020-12-06 00:35 | NUR ---
PT ARRVIED FROM THE ER. A&OX4. ADMISSION DONE AND PT ORIENTED TO THE UNIT. IV INTACT AND FLUIDS STARTED. FOLLEY CATH IN PLACE. PT NPO AT MIDNIGHT FOR SX TOMORROW. ON BEDREST DUE TO FX. TYLENOL GIVEN. FALL PREC IN PLACE AND CALL LIGHT AT REACH WILL CONT WITH POC TILL EOS. VSS NO FURTHER SIGNS OF DISCOMFORT. ON 2L OF O2.
[2020-12-06 05:25] LABS: HEMATOCRIT 32.1 % (42.0-52.0); HEMOGLOBIN 10.5 gm/dL (14.0-18.0); MCH 32.7 pg (26.0-34.0); MCHC 32.8 g/dL (28.0-37.0); MCV 99.7 fL (80.0-100.0); RBC 3.22 mil/uL (4.50-6.00); RDW 14.5 % (10.5-14.5); WBC 14.6 thou/uL (4.0-11.0)
[2020-12-06 05:48] LABS: CALCIUM 8.4 mg/dL (8.5-10.1); CREATININE 1.9 mg/dL (0.7-1.3); PHOSPHORUS 3.7 mg/dL (2.5-4.9); POTASSIUM 3.4 mmol/L (3.5-5.1)
--- NOTE | 2020-12-06 07:08 | EKG ---
[address] [address] ELECTROCARDIOGRAM REPORT Name: DAPHNE DONOVAN Room #: 438-P ADM IN M.R.#: [id number] Admission: 12/05/20 Attend Phys: Andrea Augustine MD Discharge: Date of : 31 Report #: [id number] [facility] ED Test Date: 2020-12-05 Test Time: 21:26:44 Pat Name: DAPHNE DONOVAN Department: Room: [facility] Gender: M Rooms Director: : 1930 Requested By: Luis Foster Order Number: [id number] MD: Marito Steen Measurements Intervals Coker Rate: 60 P: 0 AZ: 44 QRS: 65 QRSD: 133 T: 232 QT: 474 QTc: 474 Interpretive Statements Sinus rhythm Short AZ interval Left atrial enlargement Left bundle branch block Baseline wander in lead(s) V2 Compared to ECG 11/23/2016 16:01:43 Short AZ interval now present Early repolarization no longer present Possible ischemia no longer present Electronically Signed On 12-06-2020 7:08:14 [employer] by Marito Steen [email or web address] <ELECTRONICALLY SIGNED> By: Marito Steen MD, FACC 12/06/20 0708 25 25 Marito Steen MD, [facility] /EPI
--- NOTE | 2020-12-06 10:30 | NUR ---
ASSUMED PT CARE THIS AM. PT VSS, A&OX4. PT COMPLAINS OF PAIN IN RIGHT HIP, RESPONDED WELL TO PAIN MEDS GIVEN PER EMAR. ON 2 L NC. NPO FOR SURGERY TODAY. GIVEN PO POTASSIUM ORDERED AFFTER CONFIRMING WITH SURGERY THAT IT WAS OKAY TO GIVE WITH A SIP OF WATER. OMALLEY CATHETER IN PLACE. IV PATENT, FLUIDS INFUSING IN LFA WITHOUT ISSUE. FALL PRECAUTIONS IN PLACE, CALLING OUT APPROPRIATELY WHEN NEEDED. AT BEDSIDE.
--- NOTE | 2020-12-06 10:44 | NUR ---
ORDERS RECEIVED FOR PT EVAL AND TREAT. Pt WITH FALL AND SUSTAINED R HIP FX. AWAITING SURGERY TODAY. WILL PLAN TO SEE Pt POST-OP AFTER NEW PT ORDERS RECEIVED FROM SURGERY TEAM.
--- NOTE | 2020-12-06 14:01 | O ---
[facility] [place] [address] OPERATIVE REPORT Name: DAPHNE DONOVAN Room #: 438-P ADM IN M.R.#: [id number] Admission: 12/05/20 Attend Phys: Andrea Augustine MD Discharge: Date of : 31 Report #: [id number] THIS REPORT FOR: cc: José Miguel Bonner MD, Neal A. MD Abraham,Luis Elias MD ~ DATE OF SERVICE: 12/06/2020 PREOPERATIVE DIAGNOSIS: Displaced right femoral neck fracture. POSTOPERATIVE DIAGNOSIS: Displaced right femoral neck fracture. PROCEDURE: Right hip hemiarthroplasty. SURGEON: Luis Saini MD. PORTABLE ROUTER OPERATOR: Jaylin Billingsley PA-C. INDICATIONS FOR PORTABLE ROUTER OPERATOR: Throughout the case, extensive retraction and manipulation of the hip including dislocation and reduction was required. This was afforded to me by my assistant press operator offset. ANESTHESIA: LMA. IMPLANTS: Mcclellan and Nephew size 11 Conquest cemented femoral stem, a size 47+8 unipolar cobalt chrome head. ESTIMATED BLOOD LOSS: 150 mL. COMPLICATIONS: None. SPECIMENS: None. CONDITION UPON LEAVING THE OPERATING ROOM: Stable. INDICATIONS FOR PROCEDURE: The patient is an 89-year-old gentleman who fell at home sustaining a right displaced femoral neck fracture. After discussion with he and his , they elected for hemiarthroplasty. DESCRIPTION OF PROCEDURE: Risks, benefits, alternatives, and complications were discussed in detail with the patient and the patient's including, but not limited to, risk of anesthesia, risk of damage to nerves, arteries, blood vessels, risk for infection, bleeding, risk for continued hip pain, leg length discrepancy, instability, and need for reoperation. Informed consent was obtained from the patient. The right hip was appropriately marked in the [address] [address] OPERATIVE REPORT Name: DAPHNE DONOVAN Room #: 438-P [facility] IN M.R.#: [id number] Admission: 12/05/20 Attend Phys: Andrea Augustine MD Discharge: Date of : 31 Report #: [id number] preoperative holding area. IV clindamycin was given for preoperative antibiotics. He was brought to the operating room and placed in the supine position on operating room table. LMA anesthesia was induced without complication. He was then placed in a left lateral decubitus position with the right hip uppermost. Right hip and lower extremity were prepped and draped in normal sterile fashion. Timeout was performed properly identifying the patient and procedure as well as the instrumentation and implants. All in the operating room were in agreement. Standard posterior approach to the hip was made with 10 blade through the skin. Dissection was taken down to the fascia with Bovie cautery. Judd elevator was used to clean off the fascia. Fresh 10 blade was used to make a fascial incision. This was taken proximally and distally with curved Tenorio scissor. Charnley retractor was placed. Piriformis tendon was identified, tagged and taken down with Bovie. Short external rotators were also taken down with Bovie cautery. Capsulotomy was made and capsule ends were tagged for later repair. There was an obvious femoral neck fracture and a femoral neck cut was made with an oscillating saw to clean up the fracture line. The femoral head was removed and sized, found to be a size 47 and 47 trial head was placed in the acetabulum and found to have a good fit. Attention was turned to the femur. This was reamed and broached up to a size 13, at which point, the size 13 broach was stable. It was trialed with a standard offset neck and a 47+0 head. Hip was reduced, taken through range of motion, found to be somewhat short compared to the left side. It was felt we could make up for this with the final implant. Broach was removed. The hip was thoroughly irrigated with normal saline and a final size 11 Conquest stem was cemented in place using standard cementation techniques. After the cement cured, this was trialed with a 47+4 and then a 47+8 head. Hip was reduced, taken through range of motion, found to be stable, found to have equal leg lengths with the +8 neck. Hip was dislocated, trial head was removed. A final size 47+8 head was placed. Hip was reduced, taken through range of motion, found to be stable. A periarticular injection consisting of morphine, ropivacaine, epinephrine, and Toradol was placed around the hip joint capsule. A gram of vancomycin was placed deep in the joint. The capsule and piriformis were repaired with 0 FiberWire. Fascia was closed with 0 Vicryl, skin was closed with 2-0 Vicryl, skin staple and a CANDI dressing was applied. The patient tolerated this procedure well and went to recovery room under care of anesthesia postoperatively. <ELECTRONICALLY SIGNED> By: Luis Saini MD 12/06/20 1401 [id number] Luis Saini MD /nt
--- NOTE | 2020-12-06 15:03 | NUR ---
ASSESSMENT: CM REVIEWED CHART AND SPOKE WITH PATIENT AND HIS . PT WAS ADMITTED AFTER A RIGHT HIP FX AND HAD SURGERY TODAY. PT LIVES IN A HOUSE WITH HIS . PT HAS ABOUT 2 STEP TO ENTER THE HOME AND A FULL FLIGHT TO THE UPPER LEVEL BUT THEY HAVE A STAIR LIFT. PT NORMALLY USES A WALKER FOR AMBULATION. PT HAS HAD [facility] IN THE PAST AND BEEN TO THE [facility] AND WILL NOT GO BACK. CM DISCUSSED ROLE. REPORTS THEY PREFER HE TO GO [facility] SINCE DR. CRUZ IS HIS PCP. CM NOTIFIED [employer]EARCH ASSOCIATE TO FAX REFERRAL. CM WILL CONTINUE TO FOLLOW TO ASSIST NEEDED.
--- NOTE | 2020-12-06 16:01 | NUR ---
FAXED REFERRAL TO [facility] SPOKE WITH APOLONIA IN ADM SHE RECEIVED REFERRAL AND WILL NEED THERAPY NOTES ONCE AVAILABLE TO REVIEW.
--- NOTE | 2020-12-07 01:18 | NUR ---
ASSESSED AT START OF SHIFT 1900. PT A&OX3 SLIGHTLY FORGETFULL. IV INTACT AND FLUIDS INFUSING. PO HYDROCODONE GIVEN FOR PAIN. RT HIP DRESSING C/D/I. ON 2L OF O2. FOLLEY CATH IN PLACE. PT RESTING WELL NO FURTHER SIGNS OF DISCOMFORT. APPLE SAUCE GIVEN DUE TO LITTLE APPETITE FROM DINNER. CALL LIGHT AT REACH AND WILL CONT TO MONITOR.
[2020-12-07 05:00] VITALS: BP 118/51
[2020-12-07 06:26] LABS: HEMATOCRIT 27.7 % (42.0-52.0); MCH 32.4 pg (26.0-34.0); MCHC 32.3 g/dL (28.0-37.0); MCV 100.2 fL (80.0-100.0); RBC 2.77 mil/uL (4.50-6.00); RDW 14.2 % (10.5-14.5); WBC 12.2 thou/uL (4.0-11.0)
[2020-12-07 07:38] VITALS: BP 115/51
[2020-12-07 08:53] LABS: CALCIUM 8.5 mg/dL (8.5-10.1); CREATININE 2.1 mg/dL (0.7-1.3); POTASSIUM 4.2 mmol/L (3.5-5.1)
--- NOTE | 2020-12-07 11:36 | NUR ---
Assumed care of pt at 0700. Pt a&ox4. BP low this am. Provider aware. Fluid bolus ordered. Dressing c/d/i. Edematous and red area on right calf. Ultrasound ordered. Dressing orders received. IVF infusing. Pain controlled with prn pain meds. Family at bedside. Fall precautions in place. Will continue to monitor.
--- NOTE | 2020-12-07 15:06 | NUR ---
on-going assessment: CM REVIEWED CHART AND SPOKE WITH LIASON FROM [facility]. THEY HAVE REVIEWED REFERRAL AND CAN ACCEPT PATIENT BUT WILL NOT HAVE A BED UNTIL THURSDAY. AND PT PREFER THIS FACILITY. PT CONTINUES TO WORK WITH THERAPIES. CM FAXED UDPATED THERAPY NOTES AND CLINICAL TO [facility]. CM NOTIFIED ATTENDING AND DR CRUZ. CM WILL CONTINUE TO FOLLOW TO ASSIST NEEDED.
[2020-12-07 16:13] VITALS: BP 102/50
[2020-12-07 20:13] VITALS: BP 112/54
[2020-12-08 03:40] VITALS: BP 141/69
[2020-12-08 04:30] LABS: HEMATOCRIT 25.6 % (42.0-52.0); HEMOGLOBIN 8.5 gm/dL (14.0-18.0); MCH 33.2 pg (26.0-34.0); MCHC 33.1 g/dL (28.0-37.0); MCV 100.4 fL (80.0-100.0); RBC 2.55 mil/uL (4.50-6.00); RDW 14.6 % (10.5-14.5); WBC 10.8 thou/uL (4.0-11.0)
[2020-12-08 05:08] LABS: CALCIUM 8.5 mg/dL (8.5-10.1); CREATININE 2.4 mg/dL (0.7-1.3); POTASSIUM 3.8 mmol/L (3.5-5.1)
[2020-12-08 07:50] VITALS: BP 130/64
--- NOTE | 2020-12-08 09:55 | NUR ---
Assumed care of pt at 0700. Pt a&o3-4 but forgetful at times. Dressing on surgical site c/d/i. Wound dressing changed. IVF infusing. Pain controlled with prn pain meds. Up to the chair with assist this am. Call light within reach. Will continue to monitor.
--- NOTE | 2020-12-08 12:56 | HC ---
[facility] [place] [address] CONSULTATION Name: DAPHNE DONOVAN Dudley Room #: 438-P ADM IN M.R.#: [id number] Admission: 12/05/20 Attend Phys: Andrea Augustine MD Discharge: Date of : 31 Report #: [id number] THIS REPORT FOR: cc: José Miguel Bonner MD, Neal A. MD Althoff,Mahin Goncalves MD ~ DATE OF SERVICE: 12/06/2020 CHIEF COMPLAINT: Lower extremity ulceration. HISTORY OF PRESENT ILLNESS: This is an 89-year-old male patient who apparently fell at home yesterday, sustaining a right femoral neck fracture. He has undergone open reduction and internal fixation, was noted to have an ulceration on his right lower leg and I have been asked to see him with regard to wound care. The patient states he is feeling pretty well. Denies significant pain. He has been wearing an abduction pillow at this time. His is at the bedside. PAST MEDICAL HISTORY: Significant for history of prostate cancer, history of atrial fibrillation, diabetes, hypertension, previous TURP in 2017, prior coronary artery bypass graft x 3 in 1995. SOCIAL HISTORY: Positive for being a former smoker. No alcohol use. FAMILY HISTORY: Noncontributory. MEDICATIONS: Include amiodarone, carvedilol, clopidogrel, fish oil, docusate sodium, Proscar, insulin, losartan, pravastatin, tamsulosin, torsemide. ALLERGIES: KEFLEX. REVIEW OF SYSTEMS: CONSTITUTIONAL: The patient denies fever, chills or weight loss. NEUROLOGICAL: The patient denies focal weakness, numbness or tingling. EYES: The patient denies visual changes, redness, or drainage. ENT: The patient denies earache, nasal drainage, sore throat. CARDIOVASCULAR: The patient denies chest pain or palpitations or diaphoresis. PULMONARY: The patient denies cough or shortness of breath. GASTROINTESTINAL: The patient denies nausea, vomiting, diarrhea or abdominal pain. ORTHOPEDIC: The patient has some mild pain in his right hip. He is feeling much better since surgery. Other systems in a 14-point review of systems are negative. PHYSICAL EXAMINATION: [facility] [address] [place] [address] CONSULTATION Name: DAPHNE DONOVAN Room #: 438-P [facility] IN [facility]#: [id number] Admission: 12/05/20 Attend Phys: Andrea Augustine MD Discharge: Date of : 31 Report #: [id number] VITAL SIGNS: At this time include temperature 36.4, pulse 60, respiratory rate 18, blood pressure 121/50. GENERAL: This is a somewhat older appearing male patient who appears to be in no distress. HEENT: Head is normocephalic. Nose and throat clear. NECK: Supple. LUNGS: Clear. HEART: Irregular without murmur. ABDOMEN: Soft. Bowel sounds present. EXTREMITIES: Right hip demonstrates surgical dressing in place. He is in an abduction foam pillow. Lower extremities demonstrate palpable distal pulses with normal capillary refill. He has a circumferential area of erythema involving the right lower leg above the ankle. There is a small ulceration laterally. It is unclear as to whether this is a traumatic or venous in origin. It is relatively small, is nontender, does not appear to be infected. CLINICAL IMPRESSION: 1. Traumatic wound versus venous ulceration of the right lateral lower leg. 2. Lower extremity edema. 3. Right femoral neck fracture, status post right hip hemiarthroplasty. 4. Type 2 diabetes mellitus. 5. Coronary artery disease. 6. History of atrial fibrillation. RECOMMENDATIONS: At this point in time, I think it will recommend topical Xeroform and a bordered foam for now. Once he is out of the bolster pillow, we might be able to consider other options and consider either Tubigrip for Adin wrap for compression. Recommend elevation of the extremities at this time. Recommend a PRAFO boots while in bed for pressure prophylaxis of the heels. I appreciate being asked to see the patient in consultation. <ELECTRONICALLY SIGNED> By: Mahin Arizmendi MD 12/08/20 1256 [id number] [id number] Mahin Arizmendi MD /nt
[2020-12-08 21:15] VITALS: BP 151/74
--- NOTE | 2020-12-09 00:39 | NUR ---
ASSESSED AT START OF SHIFT PT A&OX3 WITH SLIGHT FORGETFULNESS. PT SITTING IN CHAIR UP WITH MAX ASSISTX2 TO BSC. URINAL BY BEDSIDE. SCHEDULED TYLENOL GIVEN FOR PAIN. IV INTACT AND FLUIDS INFUSING. DRESSING IN RT CALF C/D/I. BSG CHECKED AND INSULIN GIVEN. CANDI DRESSING AND SCD'S IN PLACE. WILL CONT TO MONITOR TILL EOS.
[2020-12-09 03:25] VITALS: BP 146/73
[2020-12-09 07:20] VITALS: BP 125/63
[2020-12-09 10:52] LABS: HEMATOCRIT 24.4 % (42.0-52.0); HEMOGLOBIN 7.9 gm/dL (14.0-18.0); MCH 32.5 pg (26.0-34.0); MCHC 32.4 g/dL (28.0-37.0); MCV 100.5 fL (80.0-100.0); RBC 2.43 mil/uL (4.50-6.00); WBC 7.7 thou/uL (4.0-11.0)
--- NOTE | 2020-12-09 11:37 | NUR ---
Assumed care of pt at 0700. Pt a&o3-4 but forgetful at times. Dressing c/d/i. IVF's discontinued. Labs ordered. Up to the chair for breakfast. Large BM today. Call light within reach. Fall precautions in place. Will continue to monitor.
[2020-12-09 16:15] VITALS: BP 98/40
--- NOTE | 2020-12-09 17:24 | NUR ---
ASSUMED PT CARE AROUND 1300. PT ALERT X ORIENTED X 3-4, FORGETFUL. ON ROOM AIR, WILL CALL FOR HELP.1-2 PERSON ASSIST. INCONTINENT AT TIMES. IV LF FA AND SALINE LOCKED. PICCO DRESSING ON RT HIP. NEEDS PERP BOOTS WHEN THE PT IS IN BED.PT HAS IN HIS ROOM. CALL LIGHT WITHIN REACH. FALL PRECT IN PLACE. SUPPOSE TO DISCHARGE TOMORROW TO FACILITY ([facility]). SHIFT REPORT GIVEN TO ERNESTO MORGAN. WILL CONT TO MONITOR.
[2020-12-09 19:13] VITALS: BP 112/46
--- NOTE | 2020-12-10 02:00 | NUR ---
ASSESSMENT COMPLETED. PT SITTING IN CHAIR. HAD A LARGE LOOSE BM.LAXATIVEX HELD FOR THE NOC. PT GETS UP WITH ASSIT X 1-2. PEDAL EDEMA-HE LIKES TO SIT IN RECLINER,LEGS ELEVATED. PT DENIES PAIN-REMAINS ON SCHEDULED TYLENOL. ROOM AIR, DENIES SOA, WILL PROBABLY D/C TO REHAB TOMORROW.
[2020-12-10 07:25] VITALS: BP 140/72
[2020-12-10 08:14] VITALS: BP 140/72
[2020-12-10] MEDS ORDERED: HYDROCODON-ACE1 EAC7 PO ×2 (10:31→11:45)
--- NOTE | 2020-12-10 13:50 | NUR ---
ON-GOING ASSESSMENT: CM REVIEWED CHART AND SPOKE WITH ATTENDING WHO STATES PT IS STABLE TO DISCHARGE TO SNF TODAY. [facility] STATING THEY CAN ACCEPT PT AND HAVE ARRANGED TRANSPORTATION FOR 1300. CM NOTIFIED BEDSIDE RN, PT, PTS . CM FAXED DISCHARGE ORDERS TO FACILITY AND CONFIRMED THEY RECEIVED THEM. CHART COPY WAS ORDERED. BEDSIDE RN HAS THE CONTACT NUMBER FOR REPORT. PT REPORTS NO FURTHER NEEDS FROM CM PRIOR TO DISCHARGE. CASE CLOSED.
--- NOTE | 2020-12-10 14:02 | NUR ---
PT ALERT AND ORIENTED TIMES FOUR. VSS. PT DENIES PAIN/SOA AT THIS TIME. PT TOLERATES MEDS AND MEALS, AND IS UP SITTING IN THE CHAIR. DRESSING TO RIGHT LE CHANGED TODAY. PLANS FOR DISCHARGE TODAY. PT AT BEDSIDE.
== END 2020-12-10 13:45 | DRG 522 ==
LOC: ER 19:56 → 4S 21:24 → EROBS 21:24 → 4S 23:51
PROVIDERS: Emergency Medicine; Family Medicine; Nurse Practitioner; Orthopaedic Surgery; ADMIT Surgery; ATTEND Surgery
PROC: 0SRR019 Replacement of Right Hip Joint, Femoral Surface with Metal Synthetic Substitute, Cemented, Open Approach (ICD-10-PCS; principal; 2020-12-06)
DX: S72.011A Unspecified intracapsular fracture of right femur, initial encounter for closed fracture (principal); L97.819 Non-pressure chronic ulcer of other part of right lower leg with unspecified severity; E44.1 Mild protein-calorie malnutrition; D62 Acute posthemorrhagic anemia; I69.351 Hemiplegia and hemiparesis following cerebral infarction affecting right dominant side; I25.10 Atherosclerotic heart disease of native coronary artery without angina pectoris; E78.00 Pure hypercholesterolemia, unspecified; E87.6 Hypokalemia; E11.65 Type 2 diabetes mellitus with hyperglycemia; I12.9 Hypertensive chronic kidney disease with stage 1 through stage 4 chronic kidney disease, or unspecified chronic kidney disease; E11.22 Type 2 diabetes mellitus with diabetic chronic kidney disease; W18.39XA Other fall on same level, initial encounter; N18.9 Chronic kidney disease, unspecified; K59.00 Constipation, unspecified; E11.51 Type 2 diabetes mellitus with diabetic peripheral angiopathy without gangrene; R33.9 Retention of urine, unspecified; I48.0 Paroxysmal atrial fibrillation; Z20.822 Contact with and (suspected) exposure to COVID-19; Z85.46 Personal history of malignant neoplasm of prostate; Z95.1 Presence of aortocoronary bypass graft; Z88.1 Allergy status to other antibiotic agents; Z79.899 Other long term (current) drug therapy; Z79.4 Long term (current) use of insulin; I25.2 Old myocardial infarction; Z68.26 Body mass index [BMI] 26.0-26.9, adult; Y93.89 Activity, other specified; Y92.89 Other specified places as the place of occurrence of the external cause; Y99.8 Other external cause status
CPT/HCPCS: 10195; 50010; 50101; 50382; 50414; 51057; 51130; 51225; 51226; 51412; 53000; 53078; 54118; 56460; 56524; 56527; 56528; 56530; 57095; 57103; 57116; 57165; 62110; 62900; 70005

== ENCOUNTER 2021-01-03 17:54 | Inpatient (IN) | payer OTHER, MEDICARE ==
[~2021-01-03] VITALS: Ht 152.4 cm; Wt 80.3 kg
[2021-01-03 18:00] VITALS: BP 111/42
[2021-01-03 19:00] LABS: ABSOLUTE NEUTROPHILS 10.7 thou/uL (1.4-8.2); BASOPHILS 0.9 % (0.0-2.0); HEMATOCRIT 29.5 % (42.0-52.0); HEMOGLOBIN 9.4 gm/dL (14.0-18.0); LYMPHOCYTES 11.3 % (24.0-44.0); MCH 31.8 pg (26.0-34.0); MCV 99.4 fL (80.0-100.0); PLATELET COUNT 334 thou/uL (150-400); POLYS 79.8 % (36.0-66.0); RBC 2.96 mil/uL (4.50-6.00); RDW 15.4 % (10.5-14.5); WBC 13.5 thou/uL (4.0-11.0)
[2021-01-03 19:10] LABS: URINE BILIRUBIN NEGATIVE (Negative); URINE GLUCOSE-RANDOM* NEGATIVE (Negative); URINE KETONES NEGATIVE (Negative)
[2021-01-03 19:11] LABS: URINE BLOOD 3+ (Negative); URINE PROTEIN (DIPSTICK) 2+ (Negative)
[2021-01-03 19:12] LABS: URINE CLARITY CLOUDY; URINE COLOR YELLOW; URINE LEUKOCYTES-REFLEX 3+ (Negative); URINE NITRITE-REFLEX POSITIVE (Negative); URINE UROBILINOGEN 0.2 E.U./dl (0.2-1.0)
[2021-01-03 19:17] LABS: ALBUMIN 2.3 g/dL (3.4-5.0); ANION GAP < 0 mmol/L (7-16); BUN 45 mg/dL (7-18); CALCIUM 9.1 mg/dL (8.5-10.1); CHLORIDE 104 mmol/L (98-107); CO2 31 mmol/L (21-32); CREATININE 3.9 mg/dL (0.7-1.3); GLUCOSE 93 mg/dL (74-106); SGOT 20 U/L (15-37); SGPT 32 U/L (16-63); SODIUM 124 mmol/L (136-145); TOTAL BILIRUBIN 0.4 mg/dL (0.2-1.0); TOTAL PROTEIN 6.7 g/dL (6.4-8.2)
[2021-01-03 19:24] LABS: CASTS None Seen /LPF (None Seen); SQUAMOUS None Seen /LPF (0-3); URINE WBC-REFLEX >25 Many /HPF (0-5)
[2021-01-03 19:25] LABS: BACTERIA-REFLEX >30 Many /HPF (None Seen); CRYSTALS None Seen /LPF (None Seen)
[2021-01-03 20:59] VITALS: BP 118/54
[2021-01-03 22:14] VITALS: BP 119/62
--- NOTE | 2021-01-03 22:15 | NUR ---
Pt. admitted to the unit from the emergency room accompanied by staff. He is alert and oriented to self. Pt. did c/o right hip pain and pain med given by another RN (see emar) with little relief. Spoke with Dr. Bonner about poor pain control and some restlessness (see orders). Po pain med was given (see emar) with better pain control noted (see emar). Bed alarm is on.
--- NOTE | 2021-01-04 06:16 | NUR ---
Pt. is alert, but a poor historian. Admission history and part of his admission assessment completed. Skin assessment needs to be finished and will pass onto the day nurse. Also, pt. unable to sign his admit papers due to cognitive state. Pt. resting quietly without any complaints. Bed alarm is on.
[2021-01-04 07:47] VITALS: BP 137/64
--- NOTE | 2021-01-04 09:00 | NUR ---
chart review. pt sent from [facility]. prior to skilled he was at home with is kari. when feeling ok, able to do own adl's, since pandemic been using wheel chair more often. "have wheel chair at home"/moon. pcp dr rose. cm visited with kari [phone]. both agree want to go back [facility] till his walking improves to come home. cm sent message to liaison for [facility]. will cont following as needed for dc needs.
[2021-01-04 09:54] LABS: HEMATOCRIT 25.9 % (42.0-52.0); HEMOGLOBIN 8.2 gm/dL (14.0-18.0); MCH 31.8 pg (26.0-34.0); MCHC 31.6 g/dL (28.0-37.0); MCV 100.3 fL (80.0-100.0); RBC 2.58 mil/uL (4.50-6.00); RDW 15.7 % (10.5-14.5); WBC 15.9 thou/uL (4.0-11.0)
[2021-01-04 10:03] LABS: CALCIUM 8.5 mg/dL (8.5-10.1); CREATININE 3.5 mg/dL (0.7-1.3); POTASSIUM 4.9 mmol/L (3.5-5.1)
[2021-01-04 16:07] VITALS: BP 142/57
[2021-01-04 20:43] VITALS: BP 143/69
--- NOTE | 2021-01-04 21:07 | NUR ---
PT A&OX3-4, FORGETFUL, VSS, C/O BACK PAIN AND REPOSITIONED PATIENT OFTEN. CONCERNED ABOUT PATIENT GETTING STRONG PAIN MEDICATION THAT WOULD MAKE HIM SLEEP OFTEN AND WANTED TRAMADOL. WILL PASS INFO TO ONCOMING SHIFT. RIGHT HIP DRESSING C/D/I. IV PATENT RIGHT AC. CONCERNED ABOUT PATIENT STARTING ANTIBIOTICS, LEVOQUIN STARTS 01/05. OMALLEY PATENT, DRAINAGE CLOUDY, SEDIMENT, DARK YELLOW. ROOM AIR, NO SIGNS OF DISTRESS. WILL CONTINUE TO MONITOR.
--- NOTE | 2021-01-05 08:28 | NUR ---
PATIENT WANTS TO GET OUT OF BED AND HAS BEEN YELLING MOST OF THIS SHIFT.HALDOL GIVEN.BLOOD GLUCOSE HAS BEEN NORMAL EXCEPT FOR THE BEGINNING OF THE SHIFT.PT HAS BEEN ATTEMPTING TO PULL HIS IV AND TELE MONITOR.MONITOR SHOWS SR.POC CONTINUED.
[2021-01-05 10:57] LABS: % SATURATION 22 % (20-39); IRON 23 ug/dL (65-175); TIBC 105 ug/dL (250-450)
[2021-01-05 11:59] LABS: FOLIC ACID 36.6 ng/mL (8.6-58.9)
--- NOTE | 2021-01-05 17:45 | NUR ---
PT ASSESSED AT START OF SHIFT. MILD DEMENTIA BUT COOPERATIVE W/ CARE. STATES PT SLEEPS IN THE RECLINER AT HOME AND HAS FOR YEARS. RT HIP INCISION W/ KYA INTACT. ALERT MOST OF DAY. IN AND ENCOURAGED PT W/ HIS EATING. BLOOD SUGARS BETTER. UP W/ WALKER W/ THERAPY BUT DECLINED TO WALK WOULD ONLY GO TO THE RECLINER. NO C/O PAIN.
[2021-01-05 17:48] VITALS: BP 137/59
[2021-01-05 20:53] VITALS: BP 126/56
--- NOTE | 2021-01-06 02:57 | NUR ---
PT IS A/O X1 AND IS FORGETFUL AND CONFUSED. ROOM AIR. SR ON THE MONITOR. LBM IS UNKNOWN AND PT C/O CONSTIPATION. ATTEMPTED TO SIT ON BSC FOR A BM BUT WAS UNABLE TO HAVE ONE. OMALLEY IN PLACE AND DRAINING LIGHT YELLOW URINE. HS BLOOD SUGAR DID NOT REQUIRE INSULIN NOTED IN THE EMAR. LEGS CONTINUE TO BE WRAPPED WITH XI WRAPS. FALL PRECAUTIONS IN PLACE, CALL LIGHT IS WITHIN REACH. WILL CONTINUE TO MONITOR.
[2021-01-06 05:32] LABS: CALCIUM 8.5 mg/dL (8.5-10.1); POTASSIUM 4.5 mmol/L (3.5-5.1)
[2021-01-06 06:05] LABS: HEMATOCRIT 26.1 % (42.0-52.0); HEMOGLOBIN 8.2 gm/dL (14.0-18.0); MCH 31.9 pg (26.0-34.0); MCHC 31.5 g/dL (28.0-37.0); MCV 101.3 fL (80.0-100.0); RBC 2.58 mil/uL (4.50-6.00); RDW 16.2 % (10.5-14.5); WBC 14.4 thou/uL (4.0-11.0)
[2021-01-06 08:00] VITALS: BP 127/63
[2021-01-06 16:12] VITALS: BP 126/61
--- NOTE | 2021-01-06 19:22 | NUR ---
PT ALERT AND ORIENTED TO PERSON AND PLACE. PT REFUSED TO GET UP FROM THE CHAIR ALL DAY LONG. PT HAD 2 EPISODES OF SMALL BM. PT COMPLAINING OF BLOATING AND STOMACH BEING FULL. PT IS WEAK AND CANNOT BEAR ANY WEIGHT IN HIS LEGS. HE IS MODERATE ASSIST X3. PT WAS PUT BACK TO BED FROM CHAIR AT 1830. AT BEDSIDE ALL DAY. URINE OUTPUT IS CLOUDY AND SEDIMENT, MADE LOW URINE OUTPUT OF 450ML. CONTINUE TO MONITOR.
[2021-01-06 19:24] VITALS: BP 115/55
--- NOTE | 2021-01-07 00:34 | NUR ---
PT IS A/O X3 AND IS FORGETFUL AND CONFUSED THIS EVENING. UP WITH MAX ASSIST TO THE BSC USING A WALKER AND GB. PT IS WEAK AND UNSTEADY ON FEET. ROOM AIR. VSS. AFEBRILE. OMALLEY IN PLACE, NO BM THIS SHIFT. C/O CONSTIPATION AND ABDOMINAL DISCOMFORT. LBM WAS YESTERDAY AFTERNOON. C/O PAIN. PRN PAIN MEDICATION GIVEN DIRECTED. FALL PRECAUTIONS IN PLACE, CALL LIGHT IS WITHIN REACH. WILL CONTINUE TO MONITOR.
[2021-01-07 05:25] LABS: HEMOGLOBIN 7.7 gm/dL (14.0-18.0); MCH 32.1 pg (26.0-34.0); MCHC 32.1 g/dL (28.0-37.0); MCV 100.1 fL (80.0-100.0); RBC 2.4 mil/uL (4.50-6.00); WBC 10.5 thou/uL (4.0-11.0)
[2021-01-07 05:43] LABS: CALCIUM 8.3 mg/dL (8.5-10.1); CREATININE 2.9 mg/dL (0.7-1.3); POTASSIUM 3.8 mmol/L (3.5-5.1)
[2021-01-07 08:08] VITALS: BP 141/65
--- NOTE | 2021-01-07 12:35 | NUR ---
rounds poc update: pt cont on iv for franchesca. pt to cont to work with therapies. plan to d/c back to snf; [facility].
[2021-01-07 17:08] VITALS: BP 159/80
--- NOTE | 2021-01-07 17:15 | NUR ---
ASSUMED CARE OF PATIENT AT SHIFT CHANGE. ASSESSMENT CHARTED. MEDICATIONS ADMINISTERED PER EMAR. VS REMAIN STABLE. PATIENT IS A&OX2-3 AND VERY CONFUSED AND FORGETFUL. PATIENT IS A MAX ASSIST (3 PERSON TRANSFER) W GB. PATIENT NEEDING REDIRECTION. UP MULTIPLE TIMES TO [facility] FROM CHAIR IN NEED OF BM BUT UNSUCCESSFUL. MIRALAX ADMINISTERED IN AM AND PATIENT AND SPOUSE EDUCATED ON NEED TO ADHERE TO [facility]. R HIP INCISION REMAINS C/D/I. FSBS STABLE. DENIES PAIN THIS SHIFT. FLUIDS DISCONTINUED TO HELP PREPARE FOR DISCHARGE TOMORROW 01/08/21 TO [facility]. FALL PRECATIONS IN PLACE. WILL CONTINUE TO MONITOR AND FOLLOW PLAN OF CARE
[2021-01-07 19:24] VITALS: BP 133/64
--- NOTE | 2021-01-08 05:27 | NUR ---
Pt. has been restless at times during the night and will yell out for help. He mostly is asking about his . Reoriented pt. with some success. Po pain med given (see emar) for c/o pain in his legs. Bed alarm is on.
[2021-01-08 08:46] VITALS: BP 151/69
[2021-01-08 09:00] LABS: HEMATOCRIT 26.2 % (42.0-52.0); HEMOGLOBIN 8.3 gm/dL (14.0-18.0); MCH 31.7 pg (26.0-34.0); MCHC 31.8 g/dL (28.0-37.0); MCV 99.7 fL (80.0-100.0); RBC 2.63 mil/uL (4.50-6.00); RDW 15.9 % (10.5-14.5); WBC 12.8 thou/uL (4.0-11.0)
[2021-01-08 09:24] LABS: ALBUMIN 2.1 g/dL (3.4-5.0); CALCIUM 8.8 mg/dL (8.5-10.1); CREATININE 2.8 mg/dL (0.7-1.3); POTASSIUM 4.3 mmol/L (3.5-5.1); TOTAL BILIRUBIN 0.4 mg/dL (0.2-1.0); TOTAL PROTEIN 6.1 g/dL (6.4-8.2)
[2021-01-08] MEDS ORDERED: LEVOFLOXACIN250 MG PO (09:53)
--- NOTE | 2021-01-08 11:28 | NUR ---
CARE TEAM INDICATED THAT PT IS MEDICALLY STABLE TO DISCHARGE TO [facility] THIS DAY. CM SPOKE WITH ADMISSIONS AT [facility] AND THEY ARE ABLE TO ACCEPT. TRANSPORT SET UP FOR 1300. PT AND SPOUSE ARE AWARE AND AGREEABLE. CHART COPY MADE. ORDERS FAXED. CM PROVIDED PT'S SPOUSE INFO REGARDING PALLIATIVE CARE AND HOSPICE SERVICES FOR POSSIBLE SERVICES IN THE FUTURE. NO OTHER CM INTERVENTION INDICATED. CASE CLOSED.
--- NOTE | 2021-01-08 11:36 | NUR ---
ASSUMED CARE OF PATIENT AT 0700 UPON SHIFT CHNAGE. ASSESSMENT CHARTED. MIRALAX ADMINISTERED WITH APPLE JUICE; PATIENT VOICING HAVING TROUBLE HAVING A BOWEL MOVEMENT. PATIENT IS A&OX2-3 WITH FORGETFULNESS AND CONFUSION. PATIENT IS A MAX ASSIST. YESTERDAY HAD TROUBLE GETTING UP; EDUCATED ON SAFETY AND AGREED WITH USING BEDPAN UNTIL THERAPY WORKS WITH PATIENT. R HIP ADHESION C/D/I. FSBS REMAIN STABLE THIS SHIFT. DENIES PAIN THIS SHIFT. SOA W EXERTION WHILE ON BEDPAN TRYING TO HAVE A BM THIS SHIFT. O2 SAT WNL ON 0L NC. SPOUSE AT BEDSIDE. PROVIDER SAW PATIENT THIS AM. LABS STABLE; PATIENT MEDICALLY STABLE TO DISCHARGE BACK TO [facility] THIS DAY. TRANSPORT WILL PICK PATIENT UP AT 1300. FALL PRECAUTIONS REMIAN IN PLACE. WILL CONTINUE TO MONITOR AND FOLLOW PLAN OF CARE
--- NOTE | 2021-01-08 14:02 | NUR ---
PATIENT DISCHARGE CANCELLED AFTER PROVIDER SPOKE WITH PATIENT AND SPOUSE. FACILITY NOTIFIED PER CM. PROVIDER AWARE OF NO IV ACCESS. PATIENT CONTINUES TO BE LETHARGIC BUT EASILY AROUSED THIS SHIFT. PATIENT ATTEMPTED TO EAT LUNCH BUT HAD AN EPISODE OF NAUSEA W NO VOMITING. SPOUSE AT BEDSIDE. WILL CONTINUE TO MONITOR FOR CHNAGES AND UPDATES
--- NOTE | 2021-01-08 15:32 | NUR ---
I agree with the QUALITY ASSISTANT assessment.
[2021-01-08 19:45] VITALS: BP 136/68
--- NOTE | 2021-01-09 03:17 | NUR ---
PATIENT AWAKE MOST OF THE NIGHT.YELLS FROM TIME TO TIME.PT ON HIS STREET CLOTHES.REPOSITIONED.POC CONTINUED.
[2021-01-09 08:16] VITALS: BP 140/75
--- NOTE | 2021-01-09 11:56 | NUR ---
ASSUMED PT CARE THIS AM. PT A&OX2, VSS. PATIENT ABLE TO MAKE NEEDS KNOWN. OMALLEY CATHETER IN PLACE DRAINING WELL. KYA TO RIGHT HIP. HAS LOWER EXTREMETY EDEMA WITH LEGS WRAPPED. PATIENT REFUSED TO GET UP WITH OCCUPATIONAL THERAPY THIS AM. TOOK MEDS WITHOUT ISSUE THIS AM. NO IV PER FILENET P8 DEVELOPER NURSE, PATIENT REFUSING NEW IV START AT THIS TIME. WAS TOLD THAT PROVIDOR WAS AWARE OF NO IV ACCESS. IV ANTIBIOTICS NOT ABLE TO BE GIVEN AT THIS TIME. MAKING DOCTOR AWARE. FALL PRECAUTIONS ARE IN PLACE.
--- NOTE | 2021-01-09 12:36 | NUR ---
CM MET WITH SPOUSE THIS AM. SHE INDICATED THAT SHE IS INTERESTED IN INFO ON PALLIATIVE AND HOSPICE SERVICES AND MAYBE JUST GOING HOME WITH HOSPICE INSTEAD OF SKILLED. SPOUSE WAS RECEPTIVE TO INFORMATIONAL VISIT WITH PEARL WITH [facility]. THEY MET AT 11:00. PHYSICIAN IS AGREEABLE WITH DC HOME THIS DAY ONTO [facility]. HE WILL BE ABLE TO ENTER ORDERS AFTER 1500. CM NOTIFIED [facility]. CM TO COMPLETE OUTSIDE HOSPITAL DNR FORM. CM FOLLOWING REGARDING DC PLANNING.
[2021-01-09 14:28] VITALS: BP 140/75
--- NOTE | 2021-01-09 15:53 | NUR ---
PT DISCHARGING TODAY TO [facility] FAXED DC ORDERS/SUMMARY TO [facility] CONFIRMATION.
== END 2021-01-09 18:35 | disposition hospice, home (50) | DRG 871 ==
LOC: ER 17:54 → 4W 19:37 → EROBS 19:37 → 4W 21:43
PROVIDERS: Emergency Medicine; ADMIT Family Medicine; ATTEND Family Medicine
DX: A41.9 Sepsis, unspecified organism (principal); N17.0 Acute kidney failure with tubular necrosis; N39.0 Urinary tract infection, site not specified; E87.1 Hypo-osmolality and hyponatremia; I10 Essential (primary) hypertension; F03.90 Unspecified dementia, unspecified severity, without behavioral disturbance, psychotic disturbance, mood disturbance, and anxiety; E11.9 Type 2 diabetes mellitus without complications; R53.81 Other malaise; R33.9 Retention of urine, unspecified; I48.91 Unspecified atrial fibrillation; D64.9 Anemia, unspecified; Z95.1 Presence of aortocoronary bypass graft; Z85.46 Personal history of malignant neoplasm of prostate; Z79.4 Long term (current) use of insulin; Z79.899 Other long term (current) drug therapy; Z88.8 Allergy status to other drugs, medicaments and biological substances; Z87.891 Personal history of nicotine dependence; Z86.73 Personal history of transient ischemic attack (TIA), and cerebral infarction without residual deficits
CPT/HCPCS: 10045; 10047